=== PATIENT | female | born 1930 | race Caucasian/White ===

== ENCOUNTER 2017-07-29 16:51 | Inpatient (IN) | payer OTHER, MEDICARE ==
--- NOTE | 2017-07-29 17:04 | PDOC ---
Attending Attestation - HPI HPI: 07/29/17 18:20 The patient is a 87 year old female brought via EMS from [facility], with a significant past medical history of asthma/COPD, hypothyroidism, GERD, colostomy (remote and rev reversal, and HTN, who presents to the emergency department complaining of shortness of breath since this morning, generalized weakness for the last few days and complaints of burning on urination as well. The patient did receive a couple of breathing treatments on route to the ED. The patient denies chest pain, headache or dizziness. Denies fever, chills, nausea, vomiting, diarrhea and constipation. Allergies: Banana, watermelon. Past surgical history: colostomy w/ reversal 2010 Social History: No alcohol, tobacco or drug use reported - Physicial Exam PE: 07/29/17 18:21 Constitutional: Awake, alert, oriented. No acute distress. Head: Normocephalic. Atraumatic Eyes: PERRL. EOMI. Conjunctivae are not pale. ENT: Mucous membranes are moist and intact. Posterior pharynx without exudates or erythema. Uvula midline. Neck: Supple. Full ROM. No lymphadenopathy. Cardiovascular: Regular rate. Regular rhythm. S1, S2 regular. Distal pulses are 2+ and symmetric. Pulmonary/Chest: No evidence of respiratory distress. Clear to auscultation bilaterally No wheezing, rales or rhonchi. Abdominal: Soft and non-distended. There is no tenderness. No rebound, guarding or rigidity. No organomegaly. No palpable masses. Good bowel sounds. Back: No CVA tenderness. Musculoskeletal: No edema. No cyanosis. No clubbing. Full range of motion in all extremities. Nocalf tenderness. Radial/pedal pulses are intact and 2+ bilaterally Skin: Skin is warm and dry. No petechiae. No purpura. Neurological: Alert and oriented to person, place, and time. Cranial nerves II -XII are grossly intact. Normal speech. Strength is grossly symmetric. No sensory deficits. Psychiatric: Good eye contact. Normal interaction, affect and behavior. <Cem Swift - Last Filed: 07/29/17 18:20> - Resident Resident Name: José Frias - ED Attending Attestation I have performed the following: I have examined & evaluated the patient, The case was reviewed & discussed with the resident, I agree w/resident's findings & plan, Exceptions are as noted - Medical Decision Making 07/29/17 17:04 I, Dr. Jeanette Matt, DO, attest that this document has been prepared under my direction and personally reviewed by me in its entirety. I further attest, that it accurately reflects all work, treatment, procedures and medical decision -making performed by me. 07/29/17 17:53 a/p: 87yo female with wheezing and SOB -hx of copd and asthma -concern for COPD exacerbation -given 2 duo nebs in the field without relief - still wheezing upon arrival -will continue with nebs, steroids -will check cxr, ekg, labs, cultures -currently on Bactrim for a UTI -will most likely obs vs admission for COPD exacerbation 07/29/17 19:00 PMD is Keely Cain - who admits to hospitalists 07/29/17 19:38 pt with a copd exacerbation will need obs for continued nebs, steroids, further eval of resp distress <Jeanette Matt - Last Filed: 07/29/17 19:38> Heart Score/ECG Review - ECG Intrepretation Comment:: 07/29/17 18:41 sinus at 88, RBBB, nl axis, no acute st/t wave findings <Jeanette Matt - Last Filed: 07/29/17 19:38>
--- NOTE | 2017-07-29 17:04 | PDOC ---
History of Present Illness - General Stated Complaint: ASTHMA Time Seen by Provider: 07/29/17 17:03 - History of Present Illness Initial Comments: 87 year old female from [facility] With PMH of asthma/COPD, hypothyroidism , GERD, colostomy (remote and rev reversal, and HTN who presents to the ED with complaints of SOB since this AM, weakness for the past few days, and dysuria for the past few days. EMS found her in the residential with SOB, diaphoresis, hypoxic to 90, and very fatigued. Two duonebs were given with increase in O2 to 98%. Patient arrived slightly lethargic. Her major complaint was of SOB and severe weakness this AM. 07/29/17 17:42 Past History - Past Medical History Allergies/Adverse Reactions: Allergies Allergy/AdvReac Type Severity Reaction Status Date / Time banana Allergy Verified 04/24/17 13:30 No Known Drug Allergies Allergy Verified 04/22/17 13:25 watermelon Allergy Swelling Uncoded 04/22/17 13:25 Home Medications: Ambulatory Orders Acetaminophen [Tylenol .Extra-Strength -] 1,000 mg PO Q6H PRN 05/24/15 Albuterol Sulfate [Proair Hfa -] 1 - 2 inh PO TID PRN 05/24/15 Aspirin [ASA -] 81 mg PO DAILY 05/24/15 Atorvastatin Calcium 10 mg PO HS 05/24/15 Cholecalciferol (Vitamin D3) [Vitamin D3] 2,000 unit PO DAILY 05/24/15 Docusate Sodium 100 mg PO DAILY 05/24/15 Escitalopram Oxalate [Lexapro -] 10 mg PO DAILY 05/24/15 Ferrous Sulfate 325 mg PO DAILY 05/24/15 Ipratropium/Albuterol Sulfate [Iprat-Albut 0.5-3(2.5) mg/3 ml] 3 ml IH TID PRN 05/24/15 Mirtazapine 7.5 mg PO HS 05/24/15 Omeprazole [Prilosec] 40 mg PO DAILY 05/24/15 Albuterol 2.5/Ipratropium 0.5 [Duoneb -] 1 neb NEB Q4H PRN 05/30/15 Budesonide/Formeterol Fumarate [SYMBICORT 80/4.5mcg -] 1 inh PO BID #1 cannister 05/30/15 Amlodipine Besylate 5 mg PO DAILY 04/22/17 Betamethasone/Propylene Glyc [Betamethasone Dp Aug 0.05% Crm] 15 gm TP BID 04/22 Clotrimazole/Betamethasone Dip [Clotrimazole-Betamethasone Crm] 15 gm TP BID Hypromellose 0.5% Opth Soln [Artificial Tears] 1 - 2 drop TID 04/22/17 Meclizine HCl 25 mg PO BID 04/22/17 Menthol [Bengay Ultra Strength] 1 each TP ASDIR 04/22/17 Nystatin Cream [Mycostatin Cream -] 1 applic TP BID 04/22/17 Sennosides [Senna] 8.6 mg PO HS 04/22/17 Thyroid [[place] Thyroid] 60 mg PO DAILY 04/22/17 Cefuroxime Axetil [Ceftin -] 500 mg PO Q12H #10 tablet 04/28/17 Oseltamivir Phosphate [Tamiflu -] 30 mg PO BID #2 capsule 04/28/17 Sodium Chloride Tablet - 1 gm PO DAILY #30 tablet 04/28/17 predniSONE [Deltasone -] 10 mg PO ASDIR #30 tab 04/28/17 Anemia: Yes Asthma: Yes Cancer: No Cardiac Disorders: No CVA: No COPD: Yes (asthma) CHF: No Dementia: No Diabetes: No GI Disorders: Yes (GERD, colostomy) Disorders: No HTN: Yes Hypercholesterolemia: Yes Liver Disease: No Psychiatric Problems: Yes (Anxiety) Seizures: No Thyroid Disease: Yes (hypothyroid) - Surgical History Abdominal Surgery: Yes (colostomy w/ reversal 2010) Appendectomy: No Cardiac Surgery: No Cholecystectomy: No Lung Surgery: No Neurologic Surgery: No Orthopedic Surgery: No - Immunization History Immunization Up to Date: Yes - Suicide/Smoking/Psychosocial Hx Smoking History: Never smoked Have you smoked in the past 12 months: No Hx Alcohol Use: No Drug/Substance Use Hx: No Substance Use Type: None Hx Substance Use Treatment: No Review of Systems - Review of Systems Constitutional: Yes: Chills, Diaphoresis. No: Fever HEENTM: No: Blurred Vision, Tearing Respiratory: Yes: Shortness of Breath, SOB with Exertion, SOB at Rest, Wheezing. No: Cough Cardiac (ROS): No: Chest Pain, Irregular Heart Rate, Lightheadedness, Palpitations ABD/GI: No: Constipated, Diarrhea, Nausea, Vomiting : Yes: Burning, Dysuria Integumentary: No: Bruising, Erythema Neurological: No: Headache, Numbness *Physical Exam - Physical Exam General Appearance: Yes: Nourished, Appropriately Dressed, Apparent Distress, Mild Distress HEENT: positive: EOMI, UMER, Normal Voice Neck: positive: Trachea midline, Normal Thyroid, Supple. negative: Tender, Rigid Respiratory/Chest: positive: Respiratory Distress, Accessory Muscle Use, Labored Respiration, Rapid RR, Decreased Breath Sounds, Wheezing. negative: Chest Tender, Lungs Clear, Normal Breath Sounds Cardiovascular: positive: Regular Rhythm, Regular Rate Gastrointestinal/Abdominal: positive: Normal Bowel Sounds, Flat, Soft. negative : Tender Musculoskeletal: positive: Normal Inspection. negative: Decreased Range of Motion, Muscle Spasm Extremity: positive: Normal Capillary Refill, Normal Inspection, Normal Range of Motion. negative: Tender Integumentary: positive: Normal Color, Warm, Diaphoresis Neurologic: positive: Alert, Normal Mood/Affect, Motor Strength 5/5. negative: Fully Oriented ED Treatment Course - LABORATORY CBC & Chemistry Diagram: 07/29/17 17:41 07/29/17 17:41 Medical Decision Making - Medical Decision Making 87 year old female presenting in respiratory distress from asthma/copd exacerbation. Given 3 duonebs and 2 albuterol nebs with relief of respiratory distress. O2 decreased because of suspected CO2 narcosis. Given methylpred, azithromycin, and 500 ml IV fluids. No WBC and vitals stable. Admitted under Dr. Sun for COPD/ CHF exacerbation, hypothyroidism, and UTI. 07/29/17 19:23 *DC/Admit/Observation/Transfer Diagnosis at time of Disposition: Asthma-COPD overlap syndrome Hypothyroidism Qualifiers: Hypothyroidism type: unspecified Qualified Code(s): E03.9 - Hypothyroidism, unspecified - Discharge Dispostion Condition at time of disposition: Stable Decision to Admit order: Yes - Referrals - Patient Instructions - Post Discharge Activity
[2017-07-29] MEDS ORDERED: ALBUTEROL SO4 2.5/IPRATROPIUM 0.5 INH SOL 3 ML VIAL.NEB. NEB ONE ×2 (17:24→17:53)
[2017-07-29] MEDS ORDERED: methylPREDNISolone NA SUCC 125 MG/2 ML VIAL IVPB ONE (17:24)
[2017-07-29] MEDS ORDERED: ALBUTEROL SO4 2.5/IPRATROPIUM 0.5 INH SOL 3 ML VIAL.NEB. NEB SCH (17:45)
[2017-07-29] MEDS ORDERED: SODIUM CHLORIDE 0.9% 500 ML INFUS.BAG IV ONE (17:45)
[2017-07-29] MEDS ORDERED: ALBUTEROL SO4 0.083% IH SOL 2.5 MG/3 ML VIAL.NEB. NEB ONE (17:54)
[2017-07-29 17:58] LABS: HEMATOCRIT 35.7 % (32.4-45.2); LYMPH % 31.8 % (8-40); MCH 32.3 pg (25.7-33.7); MCHC 33.8 g/dl (32.0-36.0); MEAN CELL VOLUME 95.7 fl (80-96); MEAN PLT VOLUME 7.2 fl (7.5-11.1); MONO % 6.1 % (3.8-10.2); NEUT % 62.1 % (42.8-82.8); PLATELET COUNT 190 K/MM3 (134-434); RBC 3.73 M/mm3 (3.60-5.2); RDW 13.4 % (11.6-15.6); WHITE BLOOD COUNT 3.7 K/mm3 (4.0-10.0)
[2017-07-29 18:03] LABS: VENOUS PC02 41.3 mmHg (38-52); VENOUS PH 7.38 (7.32-7.42); VENOUS PO2 56.9 mmHg (28-48)
[2017-07-29] MEDS: ALBUTEROL SO4 0.083% IH SOL 2.5 MG/3 ML VIAL.NEB. NEB SCH ×4 (18:06→19:05)
[2017-07-29] MEDS ORDERED: methylPREDNISolone NA SUCC 125 MG/2 ML VIAL ONE (18:08)
[2017-07-29 18:14] LABS: ARTERIAL BLD GAS O2 SATURATION 91.6 % (90-98.9); ARTERIAL BLOOD GAS BASE EXCESS 0.3 meq/l (-2-2); ARTERIAL BLOOD GAS PCO2 39.7 mmHg (35-45); ARTERIAL BLOOD GAS PO2 62.6 mmHg (68-100); ARTERIAL BLOOD GAS pH 7.41 (7.35-7.45); CARBOXYHEMOGLOBIN 1.3 gm% (0.5-2.0)
[2017-07-29 18:17] LABS: ALLENS TEST POSITIVE
[2017-07-29 18:23] LABS: ALBUMIN 4.2 g/dl (3.4-5.0); ANION GAP 8 (8-16); BILIRUBIN,TOTAL 0.3 mg/dL (0.2-1.0); BLOOD UREA NITROGEN 19 mg/dL (7-18); CALCIUM 8.6 mg/dL (8.5-10.1); CHLORIDE 96 mmol/L (98-107); CO2 26 mmol/L (21-32); CREATININE 1.2 mg/dL (0.55-1.02); GLUCOSE,RANDOM 127 mg/dL (74-106); POTASSIUM 4.7 mmol/L (3.5-5.1); SGOT/AST 22 U/L (15-37); SGPT/ALT 19 U/L (12-78); SODIUM 130 mmol/L (136-145)
[2017-07-29 18:25] LABS: ALK PHOS 94 U/L (45-117); N-TERMINAL BNP 1104.26 pg/ml (5-450)
[2017-07-29] MEDS ORDERED: AZITHROMYCIN IVPB 500 MG in DEXTROSE 5%-WATER - 250 ML IVPB ONE (19:01)
[2017-07-29] MEDS ORDERED: DOCUSATE SODIUM 100 MG CAPSULE (FP) PO PRN (19:32)
[2017-07-29] MEDS ORDERED: ALBUTEROL SO4 0.083% IH SOL 2.5 MG/3 ML VIAL.NEB. NEB PRN (19:48)
[2017-07-29] MEDS ORDERED: IPRATROPIUM BR 0.02% 0.5 MG/2.5 ML VIAL.NEB. NEB PRN (19:50)
--- NOTE | 2017-07-29 19:51 | HP ---
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 Patient is a poor historian and is unable to provide an accurate history. Per record, patient has been short of breath for a few days. Her prison found her hypoxic, weak, and lethargic. EMS administered duonebs and patient immediately improved and saturation sebastian to 98%. Per record , patient is on day 6 for treatment of UTI with bactrim. Currently, patient denies chest pain, shortness of breath, nausea, vomiting, diarrhea, fevers, chills, wheezing. ER course was notable for: (1) Na 130 (2) TSH 5.95 (3) PAST MEDICAL HISTORY: COPD, asthma, hypothyroidism, GERD, colostomy, HTN, Hyponatremia PAST SURGICAL HISTORY: colostomy Social History: Smoking: denies Alcohol: denies Drugs: denies Allergies banana Allergy (Verified 04/24/17 13:30) No Known Drug Allergies Allergy (Verified 04/22/17 13:25) watermelon Allergy (Uncoded 04/22/17 13:25) Swelling HOME MEDICATIONS: Home Medications Medication Instructions Recorded Acetaminophen [Tylenol 1,000 mg PO Q6H PRN 05/24/15 .Extra-Strength -] Albuterol Sulfate [Proair Hfa -] 1 - 2 inh PO TID PRN 05/24/15 Aspirin [ASA -] 81 mg PO DAILY 05/24/15 Atorvastatin Calcium 10 mg PO HS 05/24/15 Cholecalciferol (Vitamin D3) 2,000 unit PO DAILY 05/24/15 [Vitamin D3] Docusate Sodium 100 mg PO DAILY 05/24/15 Escitalopram Oxalate [Lexapro -] 10 mg PO DAILY 05/24/15 Ferrous Sulfate 325 mg PO DAILY 05/24/15 Ipratropium/Albuterol Sulfate 3 ml IH TID PRN 05/24/15 [Iprat-Albut 0.5-3(2.5) mg/3 ml] Mirtazapine 7.5 mg PO HS 05/24/15 Omeprazole [Prilosec] 40 mg PO DAILY 05/24/15 Albuterol 2.5/Ipratropium 0.5 1 neb NEB Q4H PRN 05/30/15 [Duoneb -] Budesonide/Formeterol Fumarate 1 inh PO BID #1 cannister 05/30/15 [SYMBICORT 80/4.5mcg -] Amlodipine Besylate 5 mg PO DAILY 04/22/17 Betamethasone/Propylene Glyc 15 gm TP BID 04/22/17 [Betamethasone Dp Aug 0.05% Crm] Clotrimazole/Betamethasone Dip 15 gm TP BID 04/22/17 [Clotrimazole-Betamethasone Crm] Hypromellose 0.5% Opth Soln 1 - 2 drop TID 04/22/17 [Artificial Tears] Meclizine HCl 25 mg PO BID 04/22/17 Menthol [Bengay Ultra Strength] 1 each TP ASDIR 04/22/17 Nystatin Cream [Mycostatin Cream -] 1 applic TP BID 04/22/17 Sennosides [Senna] 8.6 mg PO HS 04/22/17 Thyroid [[place] Thyroid] 60 mg PO DAILY 04/22/17 Cefuroxime Axetil [Ceftin -] 500 mg PO Q12H #10 tablet 04/28/17 Oseltamivir Phosphate [Tamiflu -] 30 mg PO BID #2 capsule 04/28/17 Sodium Chloride Tablet - 1 gm PO DAILY #30 tablet 04/28/17 predniSONE [Deltasone -] 10 mg PO ASDIR #30 tab 04/28/17 REVIEW OF SYSTEMS CONSTITUTIONAL: Absent: fever, chills, diaphoresis, generalized weakness, malaise, loss of appetite, weight change HEENT: Absent: rhinorrhea, nasal congestion, throat pain, throat swelling, difficulty swallowing, mouth swelling, ear pain, eye pain, visual changes CARDIOVASCULAR: Absent: chest pain, syncope, palpitations, irregular heart rate, lightheadedness , peripheral edema RESPIRATORY: Absent: cough, shortness of breath, dyspnea with exertion, orthopnea, wheezing, stridor, hemoptysis GASTROINTESTINAL: Absent: abdominal pain, abdominal distension, nausea, vomiting, diarrhea, constipation, melena, hematochezia GENITOURINARY: Absent: dysuria, frequency, urgency, hesitancy, hematuria, flank pain, genital pain MUSCULOSKELETAL: Absent: myalgia, arthralgia, joint swelling, back pain, neck pain SKIN: Absent: rash, itching, pallor HEMATOLOGIC/IMMUNOLOGIC: Absent: easy bleeding, easy bruising, lymphadenopathy, frequent infections ENDOCRINE: Absent: unexplained weight gain, unexplained weight loss, heat intolerance, cold intolerance NEUROLOGIC: Absent: headache, focal weakness or paresthesias, dizziness, unsteady gait, seizure, mental status changes, bladder or bowel incontinence PSYCHIATRIC: Absent: anxiety, depression, suicidal or homicidal ideation, hallucinations. PHYSICAL EXAMINATION Vital Signs - 24 hr 07/29/17 07/29/17 07/29/17 16:51 17:04 17:08 Temperature 98.2 F Pulse Rate 90 82 82 Respiratory 16 Rate Blood Pressure 160/73 O2 Sat by Pulse 99 91 L 91 L Oximetry (%) 07/29/17 18:03 Temperature Pulse Rate 82 Respiratory Rate Blood Pressure O2 Sat by Pulse 99 Oximetry (%) GENERAL: A&O x 1, no acute distress EYES: PERRLA, EOMI ENT: Moist mucus membranes NECK: No JVD LUNGS: CTA, mild bibasilar crackles noted no wheezes HEART: RRR, 3/6 systolic murmur 2nd R intercostal ABDOMEN: distended but soft, nontender, BS present MUSCULOSKELETAL: No CVA Tenderness EXTREMITIES: 2+ pulses, 1+ pitting edema NEUROLOGICAL: Cranial nerves II-XII intact. Laboratory Results - last 24 hr 07/29/17 07/29/17 07/29/17 17:34 17:34 17:41 WBC 3.7 L D RBC 3.73 Hgb 12.0 Hct 35.7 MCV 95.7 MCH 32.3 MCHC 33.8 RDW 13.4 Plt Count 190 D MPV 7.2 L Neutrophils % 62.1 D Lymphocytes % 31.8 D Monocytes % 6.1 D Eosinophils % 0.0 Basophils % 0.0 Nucleated RBC % 0 Anticoagulation Therapy Puncture Site ABG pH ABG pCO2 at Pt Temp ABG pO2 at Pt Temp ABG HCO3 ABG O2 Sat (Measured) ABG O2 Content ABG Base Excess Santosh Test VBG pH 7.38 POC VBG pCO2 41.3 D POC VBG pO2 56.9 H D Mixed VBG HCO3 24.3 Carboxyhemoglobin Methemoglobin O2 Delivery Device Oxygen Flow Rate Vent Mode Vent Rate Mechanical Rate Pressure Support Vent Sodium Potassium Chloride Carbon Dioxide Anion Gap BUN Creatinine Creat Clearance w eGFR Random Glucose Lactic Acid Calcium Total Bilirubin AST ALT Alkaline Phosphatase Creatine Kinase Troponin I B-Natriuretic Peptide Total Protein Albumin TSH 5.95 H Free T4 0.63 L 07/29/17 07/29/17 07/29/17 17:41 17:42 17:58 WBC RBC Hgb Hct MCV MCH MCHC RDW Plt Count MPV Neutrophils % Lymphocytes % Monocytes % Eosinophils % Basophils % Nucleated RBC % Anticoagulation Therapy No Result Required. Puncture Site Right radial ABG pH 7.41 ABG pCO2 at Pt Temp 39.7 ABG pO2 at Pt Temp 62.6 L D ABG HCO3 24.4 ABG O2 Sat (Measured) 91.6 ABG O2 Content 14.2 L ABG Base Excess 0.3 Santosh Test Positive VBG pH POC VBG pCO2 POC VBG pO2 Mixed VBG HCO3 Carboxyhemoglobin 1.3 Methemoglobin 1.6 H O2 Delivery Device Room air Oxygen Flow Rate 21% Vent Mode No Result Required. Vent Rate No Result Required. Mechanical Rate No Result Required. Pressure Support Vent No Result Required. Sodium 130 L Potassium 4.7 Chloride 96 L Carbon Dioxide 26 Anion Gap 8 BUN 19 H Creatinine 1.2 H Creat Clearance w eGFR 42.30 Random Glucose 127 H Lactic Acid 1.2 Calcium 8.6 Total Bilirubin 0.3 AST 22 ALT 19 Alkaline Phosphatase 94 Creatine Kinase 128 Troponin I < 0.02 B-Natriuretic Peptide 1104.26 H Total Protein 8.0 Albumin 4.2 TSH Free T4 ASSESSMENT/PLAN: 87 year old female with a hx of COPD and asthma, hypothyroid, GERD, hx of colostomy and hypertension presents with acute shortness of breath likely secondary to COPD exacerbation #COPD Exacerbation: mild exacerbation, patient satting 98% on 1.5 liters -albuterol/ipratropium inhalers Q6 Jak -solumedrol 40 BID -zithromax given by ED -monitor O2 sat -2L O2 nasal cannula -obs admission -get echo -2nd troponin at midnight #UTI: patient was diagnosed with UTI on 07/23 and given a 7 day course of bactrim , she is on day 6/7 per prison record -give 1 more day of bactrim (3 doses) #CAD: chronic, no symptoms to suggest ACS -EKG new RBBB otherwise NSR w/ sinus arrhythmia -continue ASA -continue atorvastatin -echocardiogram -repeat troponin #Hyponatremia: patient is chronically hyponatremic, 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 -continue home dose of sodium supplementation #Hypothyroid: patient is not controlled on her current dose of armour thyroid 60mg QD -keep thyroid medication at 60 for now #Hypertension: patient is mildly hypertensive -continue amlodipine 5mg QD #FEN: -no standing fluids -chronically hyponatremic, continue sodium pills and recheck BMP -low sodium diet #Prophylaxis -heparin prophylaxis 5000 TID #Disposition -med-surg obs Visit type - Emergency Visit Emergency Visit: Yes Care time: The patient presented to the Emergency Department on the above date and was hospitalized for further evaluation of their emergent condition. - New Patient This patient is new to me today: Yes Date on this admission: 07/29/17 - Critical Care Critical Care patient: No Hospitalist Screening - Colonoscopy Questionnaire Colonoscopy Questionnaire: Colonoscopy Questionnaire - Patient: 50 - 75 years old and never had a screening colonoscopy: Unknown History of colon or rectal polyps, or CA: Unknown History of IBD, Crohn's disease or UC: Unknown History of abdominal radiation therapy as a child: Unknown - Relative: 1 with colon or rectal CA, or polyps at age 60 or younger: Unknown Colon or rectal CA diagnosed at age 45 or younger: Unknown Multiple relatives with colon or rectal CA: Unknown - Outcome: Screening Result: Negative Screen
--- NOTE | 2017-07-29 21:28 | PN ---
Teaching Attending Note Name of Resident: Primo Sanchez ATTENDING PHYSICIAN STATEMENT I saw and evaluated the patient. Chart, data, imaging reviewed. I reviewed the resident's note and discussed the case with the resident. I agree with the resident's findings and plan as documented. SUBJECTIVE: 87 year old senior care resident woman with a hx of COPD, asthma, hypothyroidism, GERD, colostomy, HTN, Hyponatremia c/o shortness of breath for the last 2 days. Denied any fevers or productive cough. No recent travels or sick contacts. Breathing improved after duonebs administered by EMS. OBJECTIVE: Last Vital Signs Temp Pulse Resp BP Pulse Ox 98.2 F 82 16 160/73 99 07/29/17 16:51 07/29/17 18:03 07/29/17 16:51 07/29/17 16:51 07/29/17 18:03 general- frail elderly woman, speaking in full sentences, no accessory muscles of resp heent - moist oral mucosa neck-supple cv-s1+s2+ chest- mild expiratory wheezing b/l on lung auscultation abdomen- soft, nt, bs+ ext -no pedal edema Abnormal Lab Results 07/29/17 07/29/17 07/29/17 17:34 17:34 17:41 WBC 3.7 L D MPV 7.2 L ABG pO2 at Pt Temp ABG O2 Content POC VBG pO2 56.9 H D Methemoglobin Sodium Chloride BUN Creatinine Random Glucose B-Natriuretic Peptide TSH 5.95 H Free T4 0.63 L 07/29/17 07/29/17 17:41 17:58 WBC MPV ABG pO2 at Pt Temp 62.6 L D ABG O2 Content 14.2 L POC VBG pO2 Methemoglobin 1.6 H Sodium 130 L Chloride 96 L BUN 19 H Creatinine 1.2 H Random Glucose 127 H B-Natriuretic Peptide 1104.26 H TSH Free T4 ASSESSMENT AND PLAN: #87yo woman with shortness of breath likely secondary to asthma/COPD exacerbation as it is improved after nebulizer treatment and IV steroids. Less likely to be cardiac related. Normal ekg, no chest pain. -observation -duonebs q6hrs -methylprednisone 40mg IV q12hrs -supplemental oxygen -trend troponin -repeat ekg -tranthoracic echo #HYpothryoidism -restart home medication #Hyponatremia- chronic, may be 2/2 SIADH -free water restriction -salt tablets dvt ppx -heparin sc
[2017-07-29] MEDS ORDERED: SULFAMETHOXAZOLE/TRIMETHOPRIM 800MG/160MG D.S. TABLET PO SCH (22:00)
[2017-07-29] MEDS ORDERED: AZITHROMYCIN IVPB 250 ML IVPB ONE (22:22)
[2017-07-30] MEDS: NYSTATIN 100,000 UNIT/GM TOPICAL CREAM 15 GM TUBE TP SCH ×3 (00:02→22:03)
[2017-07-30] MEDS: CLOTRIMAZOLE/BETAMET DIPROP 15 GM TUBE TP SCH ×3 (00:30→22:03)
[2017-07-30] MEDS: ATORVASTATIN CA 10 MG TABLET (FP) PO SCH ×2 (00:30→21:55)
[2017-07-30] MEDS: SENNOSIDES 8.6MG TABLET (FP) PO SCH ×2 (00:30→21:55)
[2017-07-30] MEDS: MECLIZINE HCL 25 MG TABLET (FP) PO SCH ×3 (00:30→21:55)
[2017-07-30] MEDS: MIRTAZAPINE 15 MG TABLET (FP) PO SCH ×2 (00:30→21:55)
[2017-07-30] MEDS: methylPREDNISolone NA SUCC 40 MG/1 ML VIAL IVPUSH SCH ×4 (01:00→21:55)
[2017-07-30 01:30] LABS: URINE APPEARANCE CLEAR; URINE BILIRUBIN NEGATIVE (<2.0 mg/dL); URINE COLOR LTYELLOW; URINE GLUCOSE (UA) NEGATIVE (NEGATIVE); URINE KETONE TRACE (NEGATIVE); URINE LEUK ESTERASE NEGATIVE (NEGATIVE); URINE NITRITE NEGATIVE (NEGATIVE); URINE PROTEIN NEGATIVE (NEGATIVE); URINE UROBILINOGEN NEGATIVE mg/dL (0.2-1.0)
[2017-07-30] MEDS: HEPARIN NA (PORCINE) 5,000 UNITS/ML 1ML VIAL SQ SCH ×3 (02:59→18:50)
[2017-07-30 03:51] VITALS: BMI 28.8
[2017-07-30] MEDS: THYROID 60 MG TABLET PO SCH (06:58)
[2017-07-30 07:32] LABS: HEMOGLOBIN 10.4 GM/dL (10.7-15.3); MCH 31.9 pg (25.7-33.7); MCHC 33.3 g/dl (32.0-36.0); MEAN CELL VOLUME 95.8 fl (80-96); MEAN PLT VOLUME 7.4 fl (7.5-11.1); PLATELET COUNT 171 K/MM3 (134-434); RBC 3.24 M/mm3 (3.60-5.2); RDW 13.3 % (11.6-15.6); WHITE BLOOD COUNT 2.1 K/mm3 (4.0-10.0)
[2017-07-30] MEDS ORDERED: ALBUTEROL SO4 0.083% IH SOL 2.5 MG/3 ML VIAL.NEB. NEB PRN (07:43)
[2017-07-30 08:18] LABS: CHLORIDE 97 mmol/L (98-107); POTASSIUM 4.7 mmol/L (3.5-5.1); SODIUM 132 mmol/L (136-145)
[2017-07-30] MEDS: ALBUTEROL SO4 2.5/IPRATROPIUM 0.5 INH SOL 3 ML VIAL.NEB. NEB SCH ×2 (08:28→11:04)
[2017-07-30 08:59] LABS: HEMATOCRIT 30.5 % (32.4-45.2); HEMOGLOBIN 10.3 GM/dL (10.7-15.3); MCH 32.3 pg (25.7-33.7); MCHC 33.7 g/dl (32.0-36.0); MEAN CELL VOLUME 95.9 fl (80-96); MEAN PLT VOLUME 7.5 fl (7.5-11.1); PLATELET COUNT 154 K/MM3 (134-434); RBC 3.18 M/mm3 (3.60-5.2); RDW 13.4 % (11.6-15.6); WHITE BLOOD COUNT 2.2 K/mm3 (4.0-10.0)
[2017-07-30] MEDS ORDERED: PT OWN MED DRAWER 7, Y5N ONE (09:14)
[2017-07-30] MEDS: PANTOPRAZOLE 40 MG TABLET (FP) PO SCH (09:14)
[2017-07-30] MEDS: ASPIRIN 81 MG CHEWABLE TABLETS PO SCH (09:14)
[2017-07-30] MEDS: FERROUS SO4 325 MG TABLET (FP) PO SCH (09:14)
[2017-07-30] MEDS: amLODIPine BESYLATE 5 MG TABLET (FP) PO SCH (09:14)
[2017-07-30] MEDS: SODIUM CHLORIDE 1 GM TABLET PO SCH (09:15)
[2017-07-30] MEDS: CHOLECALCIFEROL (VITAMIN D3) 1,000 UNIT TABLET (FP) PO SCH (09:15)
[2017-07-30] MEDS: ESCITALOPRAM OXALATE 10 MG TABLET (FP) PO SCH (09:15)
[2017-07-30 09:20] LABS: ANION GAP 13 (8-16); BLOOD UREA NITROGEN 23 mg/dL (7-18); CALCIUM 8.2 mg/dL (8.5-10.1); CO2 22 mmol/L (21-32); GLUCOSE,RANDOM 122 mg/dL (74-106); MAGNESIUM 2.3 mg/dL (1.8-2.4); PHOSPHOROUS 4.7 mg/dL (2.5-4.9)
[2017-07-30 09:49] LABS: BASO % 0.1 % (0-2.0); LYMPH % 45.2 % (8-40); MONO % 5.9 % (3.8-10.2); NEUT % 48.8 % (42.8-82.8)
[2017-07-30] MEDS ORDERED: METHYL SALICYLATE/MENTHOL OINT 30 GM TUBE TP SCH (10:00)
[2017-07-30] MEDS ORDERED: THYROID 60 MG TABLET PO SCH ×3 (10:00)
--- NOTE | 2017-07-30 10:47 | EKG ---
Test Reason : Blood Pressure : / mmHG Vent. Rate : 088 BPM Atrial Rate : 088 BPM P-R Int : 150 ms QRS Dur : 118 ms QT Int : 390 ms P-R-T Axes : 057 011 027 degrees QTc Int : 471 ms NORMAL SINUS RHYTHM WITH SINUS ARRHYTHMIA RIGHT BUNDLE BRANCH BLOCK ABNORMAL ECG Confirmed by ARLENE BOCANEGRA MD ([id number]) on 07/30/2017 10:47:17 AM Referred By: Confirmed By:ARLENE BOCANEGRA MD
--- NOTE | 2017-07-30 13:52 | PN ---
Physical Exam: SUBJECTIVE: Patient seen and examined. Receiving nebulizer treatment. OBJECTIVE: Vital Signs Period Temp Pulse Resp BP Sys/Duron Pulse Ox Last 24 Hr 98.2 F-98.8 F 73-90 16-20 100-160/48-73 91-99 Vital Signs Temp 98.8 F 07/30/17 10:00 Pulse 78 07/30/17 10:14 Resp 20 07/30/17 10:00 BP 132/70 07/30/17 10:00 Pulse Ox 92 L 07/30/17 10:14 GENERAL: The patient is awake, alert, and fully oriented, on nebulizer treatment LUNGS: Scattered wheezes bilaterally, with reduced air entry more on L. HEART: Regular rate and rhythm, S1, S2 without murmur, rub or gallop. ABDOMEN: Soft, nontender, nondistended, normoactive bowel sounds EXTREMITIES: 2+ pulses, warm, well-perfused, no edema. NEUROLOGICAL: AAOx3. Normal speech, ambulates with walker Laboratory Results - last 24 hr 07/29/17 07/29/17 07/29/17 17:34 17:34 17:41 WBC 3.7 L D RBC 3.73 Hgb 12.0 Hct 35.7 MCV 95.7 MCH 32.3 MCHC 33.8 RDW 13.4 Plt Count 190 D MPV 7.2 L Total Counted Neutrophils % 62.1 D Neutrophils % (Manual) Band Neutrophils % Lymphocytes % 31.8 D Lymphocytes % (Manual) Monocytes % 6.1 D Monocytes % (Manual) Eosinophils % 0.0 Eosinophils % (Manual) Basophils % 0.0 Basophils % (Manual) Myelocytes % (Man) Promyelocytes % (Man) Blast Cells % (Manual) Nucleated RBC % 0 Metamyelocytes Differential Comment Hypersegmented Neuts Plasma Cells Smudge Cells Other Cell Type Hypochromia Toxic Granulation Dohle Bodies Polychromasia Poikilocytosis Basophilic Stippling Anisocytosis Microcytosis Macrocytosis Spherocytes Siderocytes Sickle Cells Target Cells Tear Drop Cells Ovalocytes Stomatocytes Helmet Cells Vance-Mccaulley Bodies [place] Rings Jass Cells Acanthocytes (Spur) Rouleaux Fragmented RBCs Schistocytes Anticoagulation Therapy Puncture Site ABG pH ABG pCO2 at Pt Temp ABG pO2 at Pt Temp ABG HCO3 ABG O2 Sat (Measured) ABG O2 Content ABG Base Excess Santosh Test VBG pH 7.38 POC VBG pCO2 41.3 D POC VBG pO2 56.9 H D Mixed VBG HCO3 24.3 Carboxyhemoglobin Methemoglobin O2 Delivery Device Oxygen Flow Rate Vent Mode Vent Rate Mechanical Rate Pressure Support Vent Sodium Potassium Chloride Carbon Dioxide Anion Gap BUN Creatinine Creat Clearance w eGFR Random Glucose Lactic Acid Calcium Phosphorus Magnesium Total Bilirubin AST ALT Alkaline Phosphatase Creatine Kinase Troponin I B-Natriuretic Peptide Total Protein Albumin TSH 5.95 H Free T4 0.63 L Urine Color Urine Appearance Urine pH Ur Specific [place] Urine Protein Urine Glucose (UA) Urine Ketones Urine Blood Urine Nitrite Urine Bilirubin Urine Urobilinogen Ur Leukocyte Esterase 07/29/17 07/29/17 07/29/17 17:41 17:42 17:58 WBC RBC Hgb Hct MCV MCH MCHC RDW Plt Count MPV Total Counted Neutrophils % Neutrophils % (Manual) Band Neutrophils % Lymphocytes % Lymphocytes % (Manual) Monocytes % Monocytes % (Manual) Eosinophils % Eosinophils % (Manual) Basophils % Basophils % (Manual) Myelocytes % (Man) Promyelocytes % (Man) Blast Cells % (Manual) Nucleated RBC % Metamyelocytes Differential Comment Hypersegmented Neuts Plasma Cells Smudge Cells Other Cell Type Hypochromia Toxic Granulation Dohle Bodies Polychromasia Poikilocytosis Basophilic Stippling Anisocytosis Microcytosis Macrocytosis Spherocytes Siderocytes Sickle Cells Target Cells Tear Drop Cells Ovalocytes Stomatocytes Helmet Cells Vance-Mccaulley Bodies [place] Rings [place] Cells Acanthocytes (Spur) Rouleaux Fragmented RBCs Schistocytes Anticoagulation Therapy No Result Required. Puncture Site Right radial ABG pH 7.41 ABG pCO2 at Pt Temp 39.7 ABG pO2 at Pt Temp 62.6 L D ABG HCO3 24.4 ABG O2 Sat (Measured) 91.6 ABG O2 Content 14.2 L ABG Base Excess 0.3 Santosh Test Positive VBG pH POC VBG pCO2 POC VBG pO2 Mixed VBG HCO3 Carboxyhemoglobin 1.3 Methemoglobin 1.6 H O2 Delivery Device Room air Oxygen Flow Rate 21% Vent Mode No Result Required. Vent Rate No Result Required. Mechanical Rate No Result Required. Pressure Support Vent No Result Required. Sodium 130 L Potassium 4.7 Chloride 96 L Carbon Dioxide 26 Anion Gap 8 BUN 19 H Creatinine 1.2 H Creat Clearance w eGFR 42.30 Random Glucose 127 H Lactic Acid 1.2 Calcium 8.6 Phosphorus Magnesium Total Bilirubin 0.3 AST 22 ALT 19 Alkaline Phosphatase 94 Creatine Kinase 128 Troponin I < 0.02 B-Natriuretic Peptide 1104.26 H Total Protein 8.0 Albumin 4.2 TSH Free T4 Urine Color Urine Appearance Urine pH Ur Specific [place] Urine Protein Urine Glucose (UA) Urine Ketones Urine Blood Urine Nitrite Urine Bilirubin Urine Urobilinogen Ur Leukocyte Esterase 07/30/17 07/30/17 07/30/17 01:01 01:02 06:30 WBC 2.1 L D RBC 3.24 L Hgb 10.4 L D Hct 31.0 L MCV 95.8 MCH 31.9 MCHC 33.3 RDW 13.3 Plt Count 171 MPV 7.4 L Total Counted Neutrophils % Neutrophils % (Manual) Band Neutrophils % Lymphocytes % Lymphocytes % (Manual) Monocytes % Monocytes % (Manual) Eosinophils % Eosinophils % (Manual) Basophils % Basophils % (Manual) Myelocytes % (Man) Promyelocytes % (Man) Blast Cells % (Manual) Nucleated RBC % Metamyelocytes Differential Comment Hypersegmented Neuts Plasma Cells Smudge Cells Other Cell Type Hypochromia Toxic Granulation Dohle Bodies Polychromasia Poikilocytosis Basophilic Stippling Anisocytosis Microcytosis Macrocytosis Spherocytes Siderocytes Sickle Cells Target Cells Tear Drop Cells Ovalocytes Stomatocytes Helmet Cells Vance-Mccaulley Bodies [place] Rings [place] Cells Acanthocytes (Spur) Rouleaux Fragmented RBCs Schistocytes Anticoagulation Therapy Puncture Site ABG pH ABG pCO2 at Pt Temp ABG pO2 at Pt Temp ABG HCO3 ABG O2 Sat (Measured) ABG O2 Content ABG Base Excess Santosh Test VBG pH POC VBG pCO2 POC VBG pO2 Mixed VBG HCO3 Carboxyhemoglobin Methemoglobin O2 Delivery Device Oxygen Flow Rate Vent Mode Vent Rate Mechanical Rate Pressure Support Vent Sodium Potassium Chloride Carbon Dioxide Anion Gap BUN Creatinine Creat Clearance w eGFR Random Glucose Lactic Acid Calcium Phosphorus Magnesium Total Bilirubin AST ALT Alkaline Phosphatase Creatine Kinase 89 Troponin I < 0.02 B-Natriuretic Peptide Total Protein Albumin TSH Free T4 Urine Color Ltyellow Urine Appearance Clear Urine pH 5.0 Ur Specific [place]ard 1.014 Urine Protein Negative Urine Glucose (UA) Negative Urine Ketones Trace H Urine Blood Negative Urine Nitrite Negative Urine Bilirubin Negative Urine Urobilinogen Negative Ur Leukocyte Esterase Negative 07/30/17 07/30/17 06:30 09:00 WBC 2.2 L RBC 3.18 L Hgb 10.3 L Hct 30.5 L MCV 95.9 MCH 32.3 MCHC 33.7 RDW 13.4 Plt Count 154 MPV 7.5 Total Counted Cancelled Neutrophils % 48.8 D Neutrophils % (Manual) Cancelled Band Neutrophils % Cancelled Lymphocytes % 45.2 H D Lymphocytes % (Manual) Cancelled Monocytes % 5.9 Monocytes % (Manual) Cancelled Eosinophils % 0.0 Eosinophils % (Manual) Cancelled Basophils % 0.1 D Basophils % (Manual) Cancelled Myelocytes % (Man) Cancelled Promyelocytes % (Man) Cancelled Blast Cells % (Manual) Cancelled Nucleated RBC % 0 Metamyelocytes Cancelled Differential Comment Cancelled Hypersegmented Neuts Cancelled Plasma Cells Cancelled Smudge Cells Cancelled Other Cell Type Cancelled Hypochromia Cancelled Toxic Granulation Cancelled Dohle Bodies Cancelled Polychromasia Cancelled Poikilocytosis Cancelled Basophilic Stippling Cancelled Anisocytosis Cancelled Microcytosis Cancelled Macrocytosis Cancelled Spherocytes Cancelled Siderocytes Cancelled Sickle Cells Cancelled Target Cells Cancelled Tear Drop Cells Cancelled Ovalocytes Cancelled Stomatocytes Cancelled Helmet Cells Cancelled Vance-Mccaulley Bodies Cancelled [place] Rings Cancelled [place] Cells Cancelled Acanthocytes (Spur) Cancelled Rouleaux Cancelled Fragmented RBCs Cancelled Schistocytes Cancelled Anticoagulation Therapy Puncture Site ABG pH ABG pCO2 at Pt Temp ABG pO2 at Pt Temp ABG HCO3 ABG O2 Sat (Measured) ABG O2 Content ABG Base Excess Santosh Test VBG pH POC VBG pCO2 POC VBG pO2 Mixed VBG HCO3 Carboxyhemoglobin Methemoglobin O2 Delivery Device Oxygen Flow Rate Vent Mode Vent Rate Mechanical Rate Pressure Support Vent Sodium 132 L Potassium 4.7 Chloride 97 L Carbon Dioxide 22 Anion Gap 13 BUN 23 H Creatinine 1.0 Creat Clearance w eGFR Random Glucose 122 H Lactic Acid Calcium 8.2 L Phosphorus 4.7 Magnesium 2.3 Total Bilirubin AST ALT Alkaline Phosphatase Creatine Kinase Troponin I B-Natriuretic Peptide Total Protein Albumin TSH Free T4 Urine Color Urine Appearance Urine pH Ur Specific [place] Urine Protein Urine Glucose (UA) Urine Ketones Urine Blood Urine Nitrite Urine Bilirubin Urine Urobilinogen Ur Leukocyte Esterase Active Medications Generic Name Dose Route Start Last Admin Trade Name Freq PRN Reason Stop Dose Admin Albuterol Sulfate 1 amp 07/30/17 07:43 Ventolin 0.083% Nebulizer Soln - NEB Q4H PRN ASTHMA Albuterol/Ipratropium 1 amp 07/30/17 08:30 07/30/17 11:04 Duoneb - NEB 1 amp RQID JAK Administration Amlodipine Besylate 5 mg 07/30/17 10:00 07/30/17 09:14 Norvasc - PO 5 mg DAILY JAK Administration Aspirin 81 mg 07/30/17 10:00 07/30/17 09:14 Asa - PO 81 mg DAILY JAK Administration Atorvastatin Calcium 10 mg 07/29/17 22:00 07/30/17 00:30 Lipitor - PO Not Given HS JAK Cholecalciferol 2,000 unit 07/30/17 10:00 07/30/17 09:15 Vitamin D3 - PO 2,000 unit DAILY JAK Administration Clotrimazole 1 applic 07/29/17 22:00 07/30/17 00:30 Lotrisone Cream (Small Tube) TP Not Given BID JAK Docusate Sodium 100 mg 07/29/17 19:32 Colace - PO Q8H PRN CONSTIPATION Escitalopram Oxalate 10 mg 07/30/17 10:00 07/30/17 09:15 Lexapro - PO 10 mg DAILY JAK Administration Ferrous Sulfate 325 mg 07/30/17 10:00 07/30/17 09:14 Feosol - PO 325 mg DAILY JAK Administration Heparin Sodium (Porcine) 5,000 unit 07/29/17 19:45 07/30/17 09:15 Heparin - SQ 5,000 unit Q8H-IV JAK Administration Meclizine HCl 25 mg 07/29/17 22:00 07/30/17 09:15 Antivert - PO 25 mg BID JAK Administration Methylprednisolone Sodium Succinate 40 mg 07/30/17 18:00 Solu-Medrol - IVPUSH Q8H-IV JAK Mirtazapine 7.5 mg 07/29/17 22:00 07/30/17 00:30 Remeron - PO Not Given HS JAK Nystatin 1 applic 07/29/17 22:00 07/30/17 00:02 Mycostatin Cream - TP Not Given BID JAK Pantoprazole Sodium 40 mg 07/30/17 10:00 07/30/17 09:14 Protonix - PO 40 mg DAILY [facility] Administration Senna 1 tab 07/29/17 22:00 07/30/17 00:30 Senna - PO Not Given [facility] Sodium Chloride 1 gm 07/30/17 10:00 07/30/17 09:15 Sodium Chloride Tablet - PO 1 gm DAILY [facility] Administration Thyroid 60 mg 07/30/17 07:00 07/30/17 06:58 [place] Thyroid - PO 60 mg 0700 JAK Administration Current Medications Albuterol Sulfate (Ventolin 0.083% Nebulizer Soln -) 1 amp NEB Q4H PRN PRN Reason: ASTHMA Albuterol/Ipratropium (Duoneb -) 1 amp NEB RQID [facility] Last Admin: 07/30/17 11:04 Dose: 1 amp Amlodipine Besylate (Norvasc -) 5 mg PO DAILY [facility] Last Admin: 07/30/17 09:14 Dose: 5 mg Aspirin (Asa -) 81 mg PO DAILY [facility] Last Admin: 07/30/17 09:14 Dose: 81 mg Atorvastatin Calcium (Lipitor -) 10 mg PO HS [facility] Last Admin: 07/30/17 00:30 Dose: Not Given Cholecalciferol (Vitamin D3 -) 2,000 unit PO DAILY [facility] Last Admin: 07/30/17 09:15 Dose: 2,000 unit Clotrimazole (Lotrisone Cream (Small Tube)) 1 applic TP BID [facility] Last Admin: 07/30/17 00:30 Dose: Not Given Docusate Sodium (Colace -) 100 mg PO Q8H PRN PRN Reason: CONSTIPATION Escitalopram Oxalate (Lexapro -) 10 mg PO DAILY [facility] Last Admin: 07/30/17 09:15 Dose: 10 mg Ferrous Sulfate (Feosol -) 325 mg PO DAILY [facility] Last Admin: 07/30/17 09:14 Dose: 325 mg Heparin Sodium (Porcine) (Heparin -) 5,000 unit SQ Q8H-IV [facility] Last Admin: 07/30/17 09:15 Dose: 5,000 unit Meclizine HCl (Antivert -) 25 mg PO BID [facility] Last Admin: 07/30/17 09:15 Dose: 25 mg Methylprednisolone Sodium Succinate (Solu-Medrol -) 40 mg IVPUSH Q8H-IV [facility] Mirtazapine (Remeron -) 7.5 mg PO HS [facility] Last Admin: 07/30/17 00:30 Dose: Not Given Nystatin (Mycostatin Cream -) 1 applic TP BID [facility] Last Admin: 07/30/17 00:02 Dose: Not Given Pantoprazole Sodium (Protonix -) 40 mg PO DAILY [facility] Last Admin: 07/30/17 09:14 Dose: 40 mg Senna (Senna -) 1 tab PO HS [facility] Last Admin: 07/30/17 00:30 Dose: Not Given Sodium Chloride (Sodium Chloride Tablet -) 1 gm PO DAILY [facility] Last Admin: 07/30/17 09:15 Dose: 1 gm Thyroid ([place] Thyroid -) 60 mg PO 0700 [facility] Last Admin: 07/30/17 06:58 Dose: 60 mg Ambulatory Orders Acetaminophen [Tylenol .Extra-Strength -] 650 mg PO TID PRN 05/24/15 Aspirin [ASA -] 81 mg PO DAILY 05/24/15 Atorvastatin Calcium 10 mg PO HS 05/24/15 Cholecalciferol (Vitamin D3) [Vitamin D3] 2,000 unit PO DAILY 05/24/15 Docusate Sodium 100 mg PO DAILY 05/24/15 Escitalopram Oxalate [Lexapro -] 10 mg PO DAILY 05/24/15 Ferrous Sulfate 325 mg PO DAILY 05/24/15 Mirtazapine 7.5 mg PO HS 05/24/15 Omeprazole [Prilosec] 40 mg PO DAILY 05/24/15 Amlodipine Besylate 5 mg PO DAILY 04/22/17 Hypromellose 0.5% Opth Soln [Artificial Tears] 1 - 2 drop TID 04/22/17 Meclizine HCl 25 mg PO BID PRN 04/22/17 Sennosides [Senna] 8.6 mg PO HS 04/22/17 Thyroid [[place] Thyroid] 60 mg PO DAILY 04/22/17 Sodium Chloride Tablet - 1 gm PO DAILY #30 tablet 04/28/17 Budesonide/Formeterol Fumarate [SYMBICORT 80/4.5mcg -] 2 inh PO BID 07/29/17 Olanzapine [Zyprexa] 2.5 mg PO HS 07/29/17 Travoprost [Travatan Z] 5 ml OU HS 07/29/17 ECHO 07/30: EF-55-60%, RV normal size and function. Mild mitral annular calcification, Mild MR, mild TR, mild AR. Elevated RV systolic pressure 30- 40mmHg. No pericardial effusion. ASSESSMENT/PLAN: 87 yo F with a PMHx of COPD and asthma, hypothyroid, GERD, hx of colostomy and hypertension presents with acute shortness of breath likely secondary to COPD exacerbation #COPD Exacerbation: - No smoking hx, likely asthma induced -albuterol- Q4H -albuterol/ipratropium inhalers Q6 Jak -iv solumedrol changed from bid to Q8H -zithromax given by ED -monitor O2 sat -2L O2 nasal cannula -In patient -get echo -2nd troponin at midnight #Neutropenic: -Absolute neutropenic count-over 1000 -Neutropenic diet -Neutropenic precautions #UTI: patient was diagnosed with UTI on 07/23 and given a 7 day course of bactrim , she is on day 6 per senior care record -Completed bactrim #CAD: chronic, no symptoms to suggest ACS -EKG new RBBB otherwise NSR w/ sinus arrhythmia -continue ASA -continue atorvastatin -echocardiogram- see above -troponin- negative x2 #Hyponatremia: patient is chronically hyponatremic, 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 -continue home dose of sodium supplementation #Hypothyroid: TFTs not too deviated -keep thyroid medication at 60 for now #Hypertension: patient is mildly hypertensive -continue amlodipine 5mg QD #FEN: -Received normal saline -chronically hyponatremic, continue sodium pills and recheck BMP -low sodium diet #Prophylaxis -heparin prophylaxis 5000 TID #Disposition -med-surg obs Visit type - Emergency Visit Emergency Visit: Yes ED Registration Date: 07/30/17 Care time: The patient presented to the Emergency Department on the above date and was hospitalized for further evaluation of their emergent condition. - New Patient This patient is new to me today: Yes Date on this admission: 07/30/17 - Critical Care Critical Care patient: No - Discharge Referral Referred to [facility] Med [facility] No
--- NOTE | 2017-07-30 14:04 | PN ---
Teaching Attending Note Name of Resident: Brinda Espinoza ATTENDING PHYSICIAN STATEMENT I saw and evaluated the patient. I reviewed the resident's note and discussed the case with the resident. I agree with the resident's findings and plan as documented with exceptions below. SUBJECTIVE: Patient seen and examined, breathing improved. No new fevers/chills. Denies any new cough or chest pain. OBJECTIVE: Vital Signs Period Temp Pulse Resp BP Sys/Duron Pulse Ox Last 24 Hr 98.2 F-98.8 F 73-90 16-20 100-160/48-73 91-99 Intake & Output 07/27/17 07/28/17 07/29/17 07/30/17 23:59 23:59 23:59 23:59 Weight 157 lb 11.2 oz General: sitting in bed, mild tachypnea but able to speak in full sentences Chest: bilateral scattered wheezing, positive air entry Abdomen:soft, obese, NT extremities: no edema Home Medication List Medication Instructions Recorded Confirmed Type Acetaminophen [Tylenol 650 mg PO TID PRN 05/24/15 07/29/17 History .Extra-Strength -] Albuterol Sulfate [Proair Hfa -] 1 - 2 inh PO TID PRN 05/24/15 04/22/17 History Aspirin [ASA -] 81 mg PO DAILY 05/24/15 07/29/17 History Atorvastatin Calcium 10 mg PO HS 05/24/15 07/29/17 History Cholecalciferol (Vitamin D3) 2,000 unit PO DAILY 05/24/15 07/29/17 History [Vitamin D3] Docusate Sodium 100 mg PO DAILY 05/24/15 07/29/17 History Escitalopram Oxalate [Lexapro -] 10 mg PO DAILY 05/24/15 07/29/17 History Ferrous Sulfate 325 mg PO DAILY 05/24/15 07/29/17 History Ipratropium/Albuterol Sulfate 3 ml IH TID PRN 05/24/15 07/29/17 History [Iprat-Albut 0.5-3(2.5) mg/3 ml] Mirtazapine 7.5 mg PO HS 05/24/15 07/29/17 History Omeprazole [Prilosec] 40 mg PO DAILY 05/24/15 07/29/17 History Albuterol 2.5/Ipratropium 0.5 1 neb NEB Q4H PRN 05/30/15 04/22/17 History [Duoneb -] Amlodipine Besylate 5 mg PO DAILY 04/22/17 07/29/17 History Betamethasone/Propylene Glyc 15 gm TP BID 04/22/17 04/22/17 History [Betamethasone Dp Aug 0.05% Crm] Clotrimazole/Betamethasone Dip 15 gm TP BID 04/22/17 04/22/17 History [Clotrimazole-Betamethasone Crm] Hypromellose 0.5% Opth Soln 1 - 2 drop TID 04/22/17 07/29/17 History [Artificial Tears] Meclizine HCl 25 mg PO BID PRN 04/22/17 07/29/17 History Menthol [Bengay Ultra Strength] 1 each TP ASDIR 04/22/17 04/22/17 History Nystatin Cream [Mycostatin Cream -] 1 applic TP BID 04/22/17 04/22/17 History Sennosides [Senna] 8.6 mg PO HS 04/22/17 07/29/17 History Thyroid [[place]sworth Thyroid] 60 mg PO DAILY 04/22/17 07/29/17 History Budesonide/Formeterol Fumarate 2 inh PO BID 07/29/17 07/29/17 History [SYMBICORT 80/4.5mcg -] Olanzapine [Zyprexa] 2.5 mg PO HS 07/29/17 07/29/17 History Sulfamethoxazole/Trimethoprim 1 tab PO BID 07/29/17 07/29/17 History [Bactrim Ds -] Travoprost [Travatan Z] 5 ml OU HS 07/29/17 07/29/17 History Active Medications Generic Name Dose Route Start Last Admin Trade Name Freq PRN Reason Stop Dose Admin Albuterol Sulfate 1 amp 07/30/17 07:43 Ventolin 0.083% Nebulizer Soln - NEB Q4H PRN ASTHMA Albuterol/Ipratropium 1 amp 07/30/17 08:30 07/30/17 11:04 Duoneb - NEB 1 amp RQID SHONNA Administration Amlodipine Besylate 5 mg 07/30/17 10:00 07/30/17 09:14 Norvasc - PO 5 mg DAILY SHONNA Administration Aspirin 81 mg 07/30/17 10:00 07/30/17 09:14 Asa - PO 81 mg DAILY SHONNA Administration Atorvastatin Calcium 10 mg 07/29/17 22:00 07/30/17 00:30 Lipitor - PO Not Given HS SHONNA Cholecalciferol 2,000 unit 07/30/17 10:00 07/30/17 09:15 Vitamin D3 - PO 2,000 unit DAILY SHONNA Administration Clotrimazole 1 applic 07/29/17 22:00 07/30/17 00:30 Lotrisone Cream (Small Tube) TP Not Given BID SHONNA Docusate Sodium 100 mg 07/29/17 19:32 Colace - PO Q8H PRN CONSTIPATION Escitalopram Oxalate 10 mg 07/30/17 10:00 07/30/17 09:15 Lexapro - PO 10 mg DAILY SHONNA Administration Ferrous Sulfate 325 mg 07/30/17 10:00 07/30/17 09:14 Feosol - PO 325 mg DAILY SHONNA Administration Heparin Sodium (Porcine) 5,000 unit 07/29/17 19:45 07/30/17 09:15 Heparin - SQ 5,000 unit Q8H-IV SHONNA Administration Meclizine HCl 25 mg 07/29/17 22:00 07/30/17 09:15 Antivert - PO 25 mg BID SHONNA Administration Methylprednisolone Sodium Succinate 40 mg 07/30/17 18:00 Solu-Medrol - IVPUSH Q8H-IV SHONNA Mirtazapine 7.5 mg 07/29/17 22:00 07/30/17 00:30 Remeron - PO Not Given HS [facility] Nystatin 1 applic 07/29/17 22:00 07/30/17 00:02 Mycostatin Cream - TP Not Given BID SHONNA Pantoprazole Sodium 40 mg 07/30/17 10:00 07/30/17 09:14 Protonix - PO 40 mg DAILY SHONNA Administration Senna 1 tab 07/29/17 22:00 07/30/17 00:30 Senna - PO Not Given HS SHONNA Sodium Chloride 1 gm 07/30/17 10:00 07/30/17 09:15 Sodium Chloride Tablet - PO 1 gm DAILY SHONNA Administration Thyroid 60 mg 07/30/17 07:00 07/30/17 06:58 Wadsworth Thyroid - PO 60 mg 0700 SHONNA Administration Laboratory Results - last 24 hr 07/29/17 07/29/17 07/29/17 17:34 17:34 17:41 WBC 3.7 L D RBC 3.73 Hgb 12.0 Hct 35.7 MCV 95.7 MCH 32.3 MCHC 33.8 RDW 13.4 Plt Count 190 D MPV 7.2 L Total Counted Neutrophils % 62.1 D Neutrophils % (Manual) Band Neutrophils % Lymphocytes % 31.8 D Lymphocytes % (Manual) Monocytes % 6.1 D Monocytes % (Manual) Eosinophils % 0.0 Eosinophils % (Manual) Basophils % 0.0 Basophils % (Manual) Myelocytes % (Man) Promyelocytes % (Man) Blast Cells % (Manual) Nucleated RBC % 0 Metamyelocytes Differential Comment Hypersegmented Neuts Plasma Cells Smudge Cells Other Cell Type Hypochromia Toxic Granulation Dohle Bodies Polychromasia Poikilocytosis Basophilic Stippling Anisocytosis Microcytosis Macrocytosis Spherocytes Siderocytes Sickle Cells Target Cells Tear Drop Cells Ovalocytes Stomatocytes Helmet Cells Vance-Balta Bodies [place] Rings Jass Cells Acanthocytes (Spur) Rouleaux Fragmented RBCs Schistocytes Anticoagulation Therapy Puncture Site ABG pH ABG pCO2 at Pt Temp ABG pO2 at Pt Temp ABG HCO3 ABG O2 Sat (Measured) ABG O2 Content ABG Base Excess Santosh Test VBG pH 7.38 POC VBG pCO2 41.3 D POC VBG pO2 56.9 H D Mixed VBG HCO3 24.3 Carboxyhemoglobin Methemoglobin O2 Delivery Device Oxygen Flow Rate Vent Mode Vent Rate Mechanical Rate Pressure Support Vent Sodium Potassium Chloride Carbon Dioxide Anion Gap BUN Creatinine Creat Clearance w eGFR Random Glucose Lactic Acid Calcium Phosphorus Magnesium Total Bilirubin AST ALT Alkaline Phosphatase Creatine Kinase Troponin I B-Natriuretic Peptide Total Protein Albumin TSH 5.95 H Free T4 0.63 L Urine Color Urine Appearance Urine pH Ur Specific Marion Urine Protein Urine Glucose (UA) Urine Ketones Urine Blood Urine Nitrite Urine Bilirubin Urine Urobilinogen Ur Leukocyte Esterase 07/29/17 07/29/17 07/29/17 17:41 17:42 17:58 WBC RBC Hgb Hct MCV MCH MCHC RDW Plt Count MPV Total Counted Neutrophils % Neutrophils % (Manual) Band Neutrophils % Lymphocytes % Lymphocytes % (Manual) Monocytes % Monocytes % (Manual) Eosinophils % Eosinophils % (Manual) Basophils % Basophils % (Manual) Myelocytes % (Man) Promyelocytes % (Man) Blast Cells % (Manual) Nucleated RBC % Metamyelocytes Differential Comment Hypersegmented Neuts Plasma Cells Smudge Cells Other Cell Type Hypochromia Toxic Granulation Dohle Bodies Polychromasia Poikilocytosis Basophilic Stippling Anisocytosis Microcytosis Macrocytosis Spherocytes Siderocytes Sickle Cells Target Cells Tear Drop Cells Ovalocytes Stomatocytes Helmet Cells Vance-Balta Bodies [place] Rings Comstock Cells Acanthocytes (Spur) Rouleaux Fragmented RBCs Schistocytes Anticoagulation Therapy No Result Required. Puncture Site Right radial ABG pH 7.41 ABG pCO2 at Pt Temp 39.7 ABG pO2 at Pt Temp 62.6 L D ABG HCO3 24.4 ABG O2 Sat (Measured) 91.6 ABG O2 Content 14.2 L ABG Base Excess 0.3 Santosh Test Positive VBG pH POC VBG pCO2 POC VBG pO2 Mixed VBG HCO3 Carboxyhemoglobin 1.3 Methemoglobin 1.6 H O2 Delivery Device Room air Oxygen Flow Rate 21% Vent Mode No Result Required. Vent Rate No Result Required. Mechanical Rate No Result Required. Pressure Support Vent No Result Required. Sodium 130 L Potassium 4.7 Chloride 96 L Carbon Dioxide 26 Anion Gap 8 BUN 19 H Creatinine 1.2 H Creat Clearance w eGFR 42.30 Random Glucose 127 H Lactic Acid 1.2 Calcium 8.6 Phosphorus Magnesium Total Bilirubin 0.3 AST 22 ALT 19 Alkaline Phosphatase 94 Creatine Kinase 128 Troponin I < 0.02 B-Natriuretic Peptide 1104.26 H Total Protein 8.0 Albumin 4.2 TSH Free T4 Urine Color Urine Appearance Urine pH Ur Specific Marion Urine Protein Urine Glucose (UA) Urine Ketones Urine Blood Urine Nitrite Urine Bilirubin Urine Urobilinogen Ur Leukocyte Esterase 07/30/17 07/30/17 07/30/17 01:01 01:02 06:30 WBC 2.1 L D RBC 3.24 L Hgb 10.4 L D Hct 31.0 L MCV 95.8 MCH 31.9 MCHC 33.3 RDW 13.3 Plt Count 171 MPV 7.4 L Total Counted Neutrophils % Neutrophils % (Manual) Band Neutrophils % Lymphocytes % Lymphocytes % (Manual) Monocytes % Monocytes % (Manual) Eosinophils % Eosinophils % (Manual) Basophils % Basophils % (Manual) Myelocytes % (Man) Promyelocytes % (Man) Blast Cells % (Manual) Nucleated RBC % Metamyelocytes Differential Comment Hypersegmented Neuts Plasma Cells Smudge Cells Other Cell Type Hypochromia Toxic Granulation Dohle Bodies Polychromasia Poikilocytosis Basophilic Stippling Anisocytosis Microcytosis Macrocytosis Spherocytes Siderocytes Sickle Cells Target Cells Tear Drop Cells Ovalocytes Stomatocytes Helmet Cells Vance-Balta Bodies [place] Rings Jass Cells Acanthocytes (Spur) Rouleaux Fragmented RBCs Schistocytes Anticoagulation Therapy Puncture Site ABG pH ABG pCO2 at Pt Temp ABG pO2 at Pt Temp ABG HCO3 ABG O2 Sat (Measured) ABG O2 Content ABG Base Excess Santosh Test VBG pH POC VBG pCO2 POC VBG pO2 Mixed VBG HCO3 Carboxyhemoglobin Methemoglobin O2 Delivery Device Oxygen Flow Rate Vent Mode Vent Rate Mechanical Rate Pressure Support Vent Sodium Potassium Chloride Carbon Dioxide Anion Gap BUN Creatinine Creat Clearance w eGFR Random Glucose Lactic Acid Calcium Phosphorus Magnesium Total Bilirubin AST ALT Alkaline Phosphatase Creatine Kinase 89 Troponin I < 0.02 B-Natriuretic Peptide Total Protein Albumin TSH Free T4 Urine Color Ltyellow Urine Appearance Clear Urine pH 5.0 Ur Specific Marion 1.014 Urine Protein Negative Urine Glucose (UA) Negative Urine Ketones Trace H Urine Blood Negative Urine Nitrite Negative Urine Bilirubin Negative Urine Urobilinogen Negative Ur Leukocyte Esterase Negative 07/30/17 07/30/17 06:30 09:00 WBC 2.2 L RBC 3.18 L Hgb 10.3 L Hct 30.5 L MCV 95.9 MCH 32.3 MCHC 33.7 RDW 13.4 Plt Count 154 MPV 7.5 Total Counted Cancelled Neutrophils % 48.8 D Neutrophils % (Manual) Cancelled Band Neutrophils % Cancelled Lymphocytes % 45.2 H D Lymphocytes % (Manual) Cancelled Monocytes % 5.9 Monocytes % (Manual) Cancelled Eosinophils % 0.0 Eosinophils % (Manual) Cancelled Basophils % 0.1 D Basophils % (Manual) Cancelled Myelocytes % (Man) Cancelled Promyelocytes % (Man) Cancelled Blast Cells % (Manual) Cancelled Nucleated RBC % 0 Metamyelocytes Cancelled Differential Comment Cancelled Hypersegmented Neuts Cancelled Plasma Cells Cancelled Smudge Cells Cancelled Other Cell Type Cancelled Hypochromia Cancelled Toxic Granulation Cancelled Dohle Bodies Cancelled Polychromasia Cancelled Poikilocytosis Cancelled Basophilic Stippling Cancelled Anisocytosis Cancelled Microcytosis Cancelled Macrocytosis Cancelled Spherocytes Cancelled Siderocytes Cancelled Sickle Cells Cancelled Target Cells Cancelled Tear Drop Cells Cancelled Ovalocytes Cancelled Stomatocytes Cancelled Helmet Cells Cancelled Vance-Balta Bodies Cancelled [place] Rings Cancelled Comstock Cells Cancelled Acanthocytes (Spur) Cancelled Rouleaux Cancelled Fragmented RBCs Cancelled Schistocytes Cancelled Anticoagulation Therapy Puncture Site ABG pH ABG pCO2 at Pt Temp ABG pO2 at Pt Temp ABG HCO3 ABG O2 Sat (Measured) ABG O2 Content ABG Base Excess Santosh Test VBG pH POC VBG pCO2 POC VBG pO2 Mixed VBG HCO3 Carboxyhemoglobin Methemoglobin O2 Delivery Device Oxygen Flow Rate Vent Mode Vent Rate Mechanical Rate Pressure Support Vent Sodium 132 L Potassium 4.7 Chloride 97 L Carbon Dioxide 22 Anion Gap 13 BUN 23 H Creatinine 1.0 Creat Clearance w eGFR Random Glucose 122 H Lactic Acid Calcium 8.2 L Phosphorus 4.7 Magnesium 2.3 Total Bilirubin AST ALT Alkaline Phosphatase Creatine Kinase Troponin I B-Natriuretic Peptide Total Protein Albumin TSH Free T4 Urine Color Urine Appearance Urine pH Ur Specific Marion Urine Protein Urine Glucose (UA) Urine Ketones Urine Blood Urine Nitrite Urine Bilirubin Urine Urobilinogen Ur Leukocyte Esterase 2D echo results reviewed. 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 standing and prn nebs. Pre and post ambulatory oxygen sats noted. resume symbicort. Pulmonary consult. 2D echo reviewed. Patient with extensive bilateral wheezing, improved oxygenation and symptoms with steroids and nebs argue against PE. LE Duplex neg. Thyroid panel noted, continue armour thyroid. salt tablets, monitor Na levels. Continue amlodipine Reconcile home meds. DVTPPX with heparin Dispo pending clinical improvement. Plan discussed with patient in detail, all questions answered.
--- NOTE | 2017-07-30 15:27 | PN ---
Progress Note (short form) - Note Progress Note: PULMONARY CONSULTATION DICTATED 07/30/16 IMP ASTHMA/COPD EXACERBATION HTN GERD HYPONATREMIA CHRONIC PLAN IV STEROIDS INHALED BRONCHODILATORS O2 MONITOR PEAK FLOW INCENTIVE SPIROMETER MONITOR YOVANI [address] DR Problem List - Problems (1) Asthma-COPD overlap syndrome Code(s): J44.9 - CHRONIC OBSTRUCTIVE PULMONARY DISEASE, UNSPECIFIED (2) Hypothyroidism Code(s): E03.9 - HYPOTHYROIDISM, UNSPECIFIED Qualifiers: Hypothyroidism type: unspecified Qualified Code(s): E03.9 - Hypothyroidism , unspecified (3) Asthma with COPD with exacerbation Code(s): J44.1 - CHRONIC OBSTRUCTIVE PULMONARY DISEASE W (ACUTE) EXACERBATION; J45.901 - UNSPECIFIED ASTHMA WITH (ACUTE) EXACERBATION (4) Chronic hyponatremia Code(s): E87.1 - HYPO-OSMOLALITY AND HYPONATREMIA (5) GERD (gastroesophageal reflux disease) Code(s): K21.9 - GASTRO-ESOPHAGEAL REFLUX DISEASE WITHOUT ESOPHAGITIS (6) Hypertension Code(s): I10 - ESSENTIAL (PRIMARY) HYPERTENSION
[2017-07-30] MEDS ORDERED: methylPREDNISolone NA SUCC 40 MG/1 ML VIAL IVPUSH SCH (18:00)
[2017-07-30] MEDS: TIOTROPIUM BROMIDE 18 MCG CAPSULES IH SCH ×2 (18:29→21:55)
--- NOTE | 2017-07-30 21:36 | CONS ---
PULMONARY CONSULTATION DATE OF CONSULTATION: 07/30/2017 REFERRING PHYSICIAN: Terrence Cox MD The patient is an 87-year-old white female known to me from previous hospitalization with past medical history of COPD/asthma, hypothyroidism, GERD, history of colostomy, hypertension, hyponatremia, a halfway resident transferred to [facility] secondary to increasing shortness of breath, generalized weakness, and lethargy. Apparently, at the halfway, Nursing found her to be weak and lethargic. EMS was called. The patient was treated with DuoNebs and supplemental O2 with good clinical response and transferred to [facility] ER for further evaluation. In the emergency room, she was treated with inhaled bronchodilators, supplemental O2 with good clinical response, and transferred out to the medical floor for further management. Patient denies any chest pain, nausea, vomiting, or diaphoresis. Denies any hemoptysis. She is a nonsmoker. She denies any history of occupational exposure to chemicals or fumes. As stated before, she was recently hospitalized in April secondary to a COPD exacerbation. At the time, she was also noted to be mildly hyponatremic. At which time, she was evaluated by Dr. 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 PAST MEDICAL HISTORY: Again includes COPD, asthma, hypothyroidism, hyponatremia, GERD, history of colostomy, hypertension. REVIEW OF SYSTEMS: Positive cough. Positive shortness of breath. Positive wheezing. No chest pain. No palpitation. No abdominal pain. CURRENT MEDICATIONS: Include Symbicort 80/4.5 two puffs b.i.d., Solu-Medrol 40 q.8, heparin, Lexapro, Remeron, Lotrisone, Antivert, albuterol, DuoNeb, Colace, senna, Norvasc, sodium chloride, Lipitor, Feosol, aspirin, Mycostatin, Protonix, Alexander Thyroid, and vitamin D3. PHYSICAL EXAMINATION: General: The patient is an elderly white female, well developed, awake, alert, in no acute respiratory distress. Vital Signs: She is currently afebrile. Blood pressure is 132/70. Respiratory rate is 20. O2 saturation is 92% on 2 L. HEENT: Normocephalic, atraumatic. Neck: Supple. Heart: Regular. S1, S2. Chest: Bilateral wheezes throughout. Abdomen: Soft. Bowel sounds are positive. Extremities: No cyanosis or edema. LABORATORY DATA: Sodium is 132. BUN 23, creatinine 1.0. BNP is 1104. WBC is 2.2, hemoglobin 10.3, hematocrit 30.5, with a platelet count of 154,000. Chest x-ray: Poor inspiratory effort. No infiltrates and no effusions. Echocardiogram: Reveals normal right ventricular systolic function; normal ejection fraction, 55% to 60%. There is moderate aortic sclerosis, mild pulmonary hypertension. IMPRESSION: 1. Acute asthma and chronic obstructive pulmonary disease exacerbation. 2. Hyponatremia, chronic. 3. Gastroesophageal reflux disease. 4. Hyperlipidemia. 5. Hypothyroidism. PLAN: IV steroids, inhaled bronchodilators, supplemental O2. Monitor peak flow. Monitor serum electrolytes, serum sodium level. Incentive spirometer. FREEMAN MENDEZ M.D. QUIN/[id number]
[2017-07-30] MEDS: OLANZapine 2.5 MG TABLET PO SCH (21:55)
[2017-07-30] MEDS: BUDESONIDE/FORMETEROL FUMARATE 80/4.5 mcg INHALER IH SCH (23:46)
[2017-07-31] MEDS: methylPREDNISolone NA SUCC 40 MG/1 ML VIAL IVPUSH SCH ×3 (02:53→17:02)
[2017-07-31] MEDS: HEPARIN NA (PORCINE) 5,000 UNITS/ML 1ML VIAL SQ SCH ×3 (02:54→17:02)
[2017-07-31] MEDS: THYROID 60 MG TABLET PO SCH (06:17)
[2017-07-31 07:59] LABS: BASO % 0.1 % (0-2.0); HEMATOCRIT 32.4 % (32.4-45.2); HEMOGLOBIN 10.8 GM/dL (10.7-15.3); MCH 31.8 pg (25.7-33.7); MCHC 33.3 g/dl (32.0-36.0); MEAN CELL VOLUME 95.6 fl (80-96); MEAN PLT VOLUME 7.6 fl (7.5-11.1); MONO % 3.5 % (3.8-10.2); NEUT % 74.4 % (42.8-82.8); PLATELET COUNT 170 K/MM3 (134-434); RBC 3.38 M/mm3 (3.60-5.2); RDW 13.4 % (11.6-15.6); WHITE BLOOD COUNT 5.4 K/mm3 (4.0-10.0)
[2017-07-31 08:39] LABS: ALBUMIN 3.5 g/dl (3.4-5.0); BLOOD UREA NITROGEN 34 mg/dL (7-18); CALCIUM 8.6 mg/dL (8.5-10.1); CHLORIDE 100 mmol/L (98-107); GLUCOSE,RANDOM 143 mg/dL (74-106); MAGNESIUM 2.7 mg/dL (1.8-2.4); POTASSIUM 4.9 mmol/L (3.5-5.1); SODIUM 134 mmol/L (136-145)
--- NOTE | 2017-07-31 08:41 | PN ---
Physical Exam: SUBJECTIVE: Patient seen and examined. No new c/o overnight. Neutropenic precautions established. OBJECTIVE: Vital Signs Period Temp Pulse Resp BP Sys/Duron Pulse Ox Last 24 Hr 98.1 F-99.0 F 71-82 16-21 113-145/59-92 92-97 Vital Signs Temp 99.0 F 07/31/17 08:02 Pulse 82 07/31/17 08:02 Resp 20 07/31/17 08:02 BP 145/92 07/31/17 08:02 Pulse Ox 94 L 07/30/17 21:00 GENERAL: The patient is awake, alert, and fully oriented, on NC-2L LUNGS: Bilateral wheezes improved HEART: Regular rate and rhythm, S1, S2 without murmur, rub or gallop. ABDOMEN: Soft, nontender, nondistended, normoactive bowel sounds EXTREMITIES: 2+ pulses, warm, well-perfused, no edema. NEUROLOGICAL: AAOx3. Normal speech, ambulates with walker CBC, BMP 07/31/17 07:00 07/31/17 07:00 Laboratory Results - last 24 hr 07/30/17 07/30/17 07/31/17 06:30 09:00 07:00 WBC 2.2 L 5.4 D RBC 3.18 L 3.38 L Hgb 10.3 L 10.8 Hct 30.5 L 32.4 MCV 95.9 95.6 MCH 32.3 31.8 MCHC 33.7 33.3 RDW 13.4 13.4 Plt Count 154 170 MPV 7.5 7.6 Total Counted Cancelled Neutrophils % 48.8 D 74.4 D Neutrophils % (Manual) Cancelled Band Neutrophils % Cancelled Lymphocytes % 45.2 H D 22.0 D Lymphocytes % (Manual) Cancelled Monocytes % 5.9 3.5 L Monocytes % (Manual) Cancelled Eosinophils % 0.0 0.0 Eosinophils % (Manual) Cancelled Basophils % 0.1 D 0.1 Basophils % (Manual) Cancelled Myelocytes % (Man) Cancelled Promyelocytes % (Man) Cancelled Blast Cells % (Manual) Cancelled Nucleated RBC % 0 0 Metamyelocytes Cancelled Differential Comment Cancelled Hypersegmented Neuts Cancelled Plasma Cells Cancelled Smudge Cells Cancelled Other Cell Type Cancelled Hypochromia Cancelled Toxic Granulation Cancelled Dohle Bodies Cancelled Polychromasia Cancelled Poikilocytosis Cancelled Basophilic Stippling Cancelled Anisocytosis Cancelled Microcytosis Cancelled Macrocytosis Cancelled Spherocytes Cancelled Siderocytes Cancelled Sickle Cells Cancelled Target Cells Cancelled Tear Drop Cells Cancelled Ovalocytes Cancelled Stomatocytes Cancelled Helmet Cells Cancelled [place] Bodies Cancelled [place] Rings Cancelled [place] Cells Cancelled Acanthocytes (Spur) Cancelled Rouleaux Cancelled Fragmented RBCs Cancelled Schistocytes Cancelled Carbon Dioxide 22 Anion Gap 13 BUN 23 H Creatinine 1.0 Random Glucose 122 H Calcium 8.2 L Phosphorus 4.7 Magnesium 2.3 Active Medications Generic Name Dose Route Start Last Admin Trade Name Freq PRN Reason Stop Dose Admin Albuterol Sulfate 1 amp 07/30/17 07:43 Ventolin 0.083% Nebulizer Soln - NEB Q4H PRN ASTHMA Amlodipine Besylate 5 mg 07/30/17 10:00 07/30/17 09:14 Norvasc - PO 5 mg DAILY SHONNA Administration Aspirin 81 mg 07/30/17 10:00 07/30/17 09:14 Asa - PO 81 mg DAILY SHONNA Administration Atorvastatin Calcium 10 mg 07/29/17 22:00 07/30/17 21:55 Lipitor - PO 10 mg HS SHONNA Administration Budesonide/Formoterol Fumarate 2 puff 07/30/17 22:00 07/30/17 23:46 Symbicort 80/4.5mcg - IH 2 puff BID SHONNA Administration Cholecalciferol 2,000 unit 07/30/17 10:00 07/30/17 09:15 Vitamin D3 - PO 2,000 unit DAILY SHONNA Administration Clotrimazole 1 applic 07/29/17 22:00 07/30/17 22:03 Lotrisone Cream (Small Tube) TP 1 applic BID SHONNA Administration Docusate Sodium 100 mg 07/29/17 19:32 Colace - PO Q8H PRN CONSTIPATION Escitalopram Oxalate 10 mg 07/30/17 10:00 07/30/17 09:15 Lexapro - PO 10 mg DAILY SHONNA Administration Ferrous Sulfate 325 mg 07/30/17 10:00 07/30/17 09:14 Feosol - PO 325 mg DAILY SHONNA Administration Heparin Sodium (Porcine) 5,000 unit 07/29/17 19:45 07/31/17 02:54 Heparin - SQ 5,000 unit Q8H-IV SHONNA Administration Meclizine HCl 25 mg 07/29/17 22:00 07/30/17 21:55 Antivert - PO 25 mg BID SHONNA Administration Methylprednisolone Sodium Succinate 40 mg 07/30/17 21:00 07/31/17 02:53 Solu-Medrol - IVPUSH 40 mg Q6H-IV SHONNA Administration Mirtazapine 7.5 mg 07/29/17 22:00 07/30/17 21:55 Remeron - PO 7.5 mg HS SHONNA Administration Nystatin 1 applic 07/29/17 22:00 07/30/17 22:03 Mycostatin Cream - TP 1 applic BID SHONNA Administration Olanzapine 2.5 mg 07/30/17 22:00 07/30/17 21:55 Zyprexa - PO 2.5 mg HS SHONNA Administration Pantoprazole Sodium 40 mg 07/30/17 10:00 07/30/17 09:14 Protonix - PO 40 mg DAILY SHONNA Administration Senna 1 tab 07/29/17 22:00 07/30/17 21:55 Senna - PO 1 tab HS SHONNA Administration Sodium Chloride 1 gm 07/30/17 10:00 07/30/17 09:15 Sodium Chloride Tablet - PO 1 gm DAILY SHONNA Administration Thyroid 60 mg 07/30/17 07:00 07/31/17 06:17 [place] Thyroid - PO 60 mg 0700 SHONNA Administration Tiotropium [place] 1 puff 07/30/17 16:00 07/30/17 21:55 Spiriva - IH 1 puff DAILY SHONNA Administration Ambulatory Orders Acetaminophen [Tylenol .Extra-Strength -] 650 mg PO TID PRN 05/24/15 Aspirin [ASA -] 81 mg PO DAILY 05/24/15 Atorvastatin Calcium 10 mg PO HS 05/24/15 Cholecalciferol (Vitamin D3) [Vitamin D3] 2,000 unit PO DAILY 05/24/15 Docusate Sodium 100 mg PO DAILY 05/24/15 Escitalopram Oxalate [Lexapro -] 10 mg PO DAILY 05/24/15 Ferrous Sulfate 325 mg PO DAILY 05/24/15 Mirtazapine 7.5 mg PO HS 05/24/15 Omeprazole [Prilosec] 40 mg PO DAILY 05/24/15 Amlodipine Besylate 5 mg PO DAILY 04/22/17 Hypromellose 0.5% Opth Soln [Artificial Tears] 1 - 2 drop TID 04/22/17 Meclizine HCl 25 mg PO BID PRN 04/22/17 Sennosides [Senna] 8.6 mg PO HS 04/22/17 Thyroid [[place] Thyroid] 60 mg PO DAILY 04/22/17 Sodium Chloride Tablet - 1 gm PO DAILY #30 tablet 04/28/17 Budesonide/Formeterol Fumarate [SYMBICORT 80/4.5mcg -] 2 inh PO BID 07/29/17 Olanzapine [Zyprexa] 2.5 mg PO HS 07/29/17 Travoprost [Travatan Z] 5 ml OU HS 07/29/17 Current Medications Albuterol Sulfate (Ventolin 0.083% Nebulizer Soln -) 1 amp NEB Q4H PRN PRN Reason: ASTHMA Albuterol/Ipratropium (Duoneb -) 1 amp NEB RQID [facility] Amlodipine Besylate (Norvasc -) 5 mg PO DAILY [facility] Last Admin: 07/31/17 09:03 Dose: 5 mg Aspirin (Asa -) 81 mg PO DAILY [facility] Last Admin: 07/31/17 09:03 Dose: 81 mg Atorvastatin Calcium (Lipitor -) 10 mg PO HS [facility] Last Admin: 07/30/17 21:55 Dose: 10 mg Budesonide/Formoterol Fumarate (Symbicort 80/4.5mcg -) 2 puff IH BID [facility] Last Admin: 07/31/17 09:05 Dose: 2 puff Cholecalciferol (Vitamin D3 -) 2,000 unit PO DAILY [facility] Last Admin: 07/31/17 09:03 Dose: 2,000 unit Clotrimazole (Lotrisone Cream (Small Tube)) 1 applic TP BID [facility] Last Admin: 07/31/17 09:04 Dose: 1 applic Docusate Sodium (Colace -) 100 mg PO Q8H PRN PRN Reason: CONSTIPATION Escitalopram Oxalate (Lexapro -) 10 mg PO DAILY [facility] Last Admin: 07/31/17 09:02 Dose: 10 mg Ferrous Sulfate (Feosol -) 325 mg PO DAILY [facility] Last Admin: 07/31/17 09:03 Dose: 325 mg Heparin Sodium (Porcine) (Heparin -) 5,000 unit SQ Q8H-IV [facility] Last Admin: 07/31/17 09:04 Dose: 5,000 unit Meclizine HCl (Antivert -) 25 mg PO BID [facility] Last Admin: 07/31/17 09:03 Dose: 25 mg Methylprednisolone Sodium Succinate (Solu-Medrol -) 40 mg IVPUSH Q8H-IV [facility] Last Admin: 07/31/17 09:15 Dose: 40 mg Mirtazapine (Remeron -) 7.5 mg PO HS [facility] Last Admin: 07/30/17 21:55 Dose: 7.5 mg Nystatin (Mycostatin Cream -) 1 applic TP BID [facility] Last Admin: 07/31/17 09:04 Dose: 1 applic Olanzapine (Zyprexa -) 2.5 mg PO HS [facility] Last Admin: 07/30/17 21:55 Dose: 2.5 mg Pantoprazole Sodium (Protonix -) 40 mg PO DAILY [facility] Last Admin: 07/31/17 09:03 Dose: 40 mg Senna (Senna -) 1 tab PO HS [facility] Last Admin: 07/30/17 21:55 Dose: 1 tab Sodium Chloride (Sodium Chloride Tablet -) 1 gm PO DAILY [facility] Last Admin: 07/31/17 09:05 Dose: 1 gm Thyroid ([place] Thyroid -) 60 mg PO 0700 [facility] Last Admin: 07/31/17 06:17 Dose: 60 mg ECHO 07/30: EF-55-60%, RV normal size and function. Mild mitral annular calcification, Mild MR, mild TR, mild AR. Elevated RV systolic pressure 30- 40mmHg. No pericardial effusion. ASSESSMENT/PLAN: 87 yo F with a PMHx of COPD and asthma, hypothyroid, GERD, hx of colostomy and hypertension presents with acute shortness of breath likely secondary to COPD exacerbation #COPD Exacerbation: -albuterol- Q4H -albuterol/ipratropium inhalers Q6 [facility] -Home spiriva held -On solumed 40mg QH -monitor O2 sat-Pre and post-96-92 on room air -May discontinue NC oxygen #Neutropenia: -Resolved -Absolute neutropenic count-over 1000 yesterday, no longer leucopenic, could be 2/2 to outpatient bactrim use -Neutropenic diet -Neutropenic precautions #UTI: patient was diagnosed with UTI on 07/23 and given a 7 day course of bactrim , she [facility] 6/7 [facility] -Completed bactrim #CAD: chronic, no symptoms to suggest ACS -EKG new RBBB otherwise NSR w/ sinus arrhythmia -continue ASA -continue atorvastatin -echocardiogram- see above -troponin- negative x2 #Hyponatremia: patient is chronically hyponatremic, 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 - New Patient This patient is new to me today: No - Critical Care Critical Care patient: No - Discharge Referral Referred to [facility] No
[2017-07-31 08:43] LABS: ALK PHOS 73 U/L (45-117); ANION GAP 8 (8-16); BILIRUBIN,TOTAL 0.2 mg/dL (0.2-1.0); CO2 26 mmol/L (21-32); PHOSPHOROUS 4.2 mg/dL (2.5-4.9); SGOT/AST 20 U/L (15-37); SGPT/ALT 17 U/L (12-78)
--- NOTE | 2017-07-31 08:54 | PN ---
Teaching Attending Note Name of Resident: Brinda Espinoza ATTENDING PHYSICIAN STATEMENT I saw and evaluated the patient. I reviewed the resident's note and discussed the case with the resident. I agree with the resident's findings and plan as documented with exceptions below. SUBJECTIVE: Patient seen and examined, breathing with some improvement, no new complaints. OBJECTIVE: Vital Signs Period Temp Pulse Resp BP Sys/Duron Pulse Ox Last 24 Hr 98.1 F-99.0 F 71-82 16-21 113-145/59-92 92-97 Intake & Output 07/28/17 07/29/17 07/30/17 07/31/17 23:59 23:59 23:59 23:59 Intake Total 250 Balance 250 Weight 157 lb 11.2 oz General: sitting in bed having breakfast, no acute distress Chest: bilateral extensive expiratory wheezing, positive air entry. Extremities: no edema or calf tenderness Home Medication List Medication Instructions Recorded Confirmed Type Acetaminophen [Tylenol 650 mg PO TID PRN 05/24/15 07/29/17 History .Extra-Strength -] Aspirin [ASA -] 81 mg PO DAILY 05/24/15 07/29/17 History Atorvastatin Calcium 10 mg PO HS 05/24/15 07/29/17 History Cholecalciferol (Vitamin D3) 2,000 unit PO DAILY 05/24/15 07/29/17 History [Vitamin D3] Docusate Sodium 100 mg PO DAILY 05/24/15 07/29/17 History Escitalopram Oxalate [Lexapro -] 10 mg PO DAILY 05/24/15 07/29/17 History Ferrous Sulfate 325 mg PO DAILY 05/24/15 07/29/17 History Mirtazapine 7.5 mg PO HS 05/24/15 07/29/17 History Omeprazole [Prilosec] 40 mg PO DAILY 05/24/15 07/29/17 History Amlodipine Besylate 5 mg PO DAILY 04/22/17 07/29/17 History Hypromellose 0.5% Opth Soln 1 - 2 drop TID 04/22/17 07/29/17 History [Artificial Tears] Meclizine HCl 25 mg PO BID PRN 04/22/17 07/29/17 History Sennosides [Senna] 8.6 mg PO HS 04/22/17 07/29/17 History Thyroid [[place] Thyroid] 60 mg PO DAILY 04/22/17 07/29/17 History Budesonide/Formeterol Fumarate 2 inh PO BID 07/29/17 07/29/17 History [SYMBICORT 80/4.5mcg -] Olanzapine [Zyprexa] 2.5 mg PO HS 07/29/17 07/29/17 History Travoprost [Travatan Z] 5 ml OU HS 07/29/17 07/29/17 History Active Medications Generic Name Dose Route Start Last Admin Trade Name Freq PRN Reason Stop Dose Admin Albuterol Sulfate 1 amp 07/30/17 07:43 Ventolin 0.083% Nebulizer Soln - NEB Q4H PRN ASTHMA Amlodipine Besylate 5 mg 07/30/17 10:00 07/30/17 09:14 Norvasc - PO 5 mg DAILY SHONNA Administration Aspirin 81 mg 07/30/17 10:00 07/30/17 09:14 Asa - PO 81 mg DAILY SHONNA Administration Atorvastatin Calcium 10 mg 07/29/17 22:00 07/30/17 21:55 Lipitor - PO 10 mg HS SHONNA Administration Budesonide/Formoterol Fumarate 2 puff 07/30/17 22:00 07/30/17 23:46 Symbicort 80/4.5mcg - IH 2 puff BID SHONNA Administration Cholecalciferol 2,000 unit 07/30/17 10:00 07/30/17 09:15 Vitamin D3 - PO 2,000 unit DAILY SHONNA Administration Clotrimazole 1 applic 07/29/17 22:00 07/30/17 22:03 Lotrisone Cream (Small Tube) TP 1 applic BID SHONNA Administration Docusate Sodium 100 mg 07/29/17 19:32 Colace - PO Q8H PRN CONSTIPATION Escitalopram Oxalate 10 mg 07/30/17 10:00 07/30/17 09:15 Lexapro - PO 10 mg DAILY SHONNA Administration Ferrous Sulfate 325 mg 07/30/17 10:00 07/30/17 09:14 Feosol - PO 325 mg DAILY SHONNA Administration Heparin Sodium (Porcine) 5,000 unit 07/29/17 19:45 07/31/17 02:54 Heparin - SQ 5,000 unit Q8H-IV SHONNA Administration Meclizine HCl 25 mg 07/29/17 22:00 07/30/17 21:55 Antivert - PO 25 mg BID SHONNA Administration Methylprednisolone Sodium Succinate 40 mg 07/31/17 10:00 Solu-Medrol - IVPUSH Q8H-IV SHONNA Mirtazapine 7.5 mg 07/29/17 22:00 07/30/17 21:55 Remeron - PO 7.5 mg HS SHONNA Administration Nystatin 1 applic 07/29/17 22:00 07/30/17 22:03 Mycostatin Cream - TP 1 applic BID SHONNA Administration Olanzapine 2.5 mg 07/30/17 22:00 07/30/17 21:55 Zyprexa - PO 2.5 mg HS SHONNA Administration Pantoprazole Sodium 40 mg 07/30/17 10:00 07/30/17 09:14 Protonix - PO 40 mg DAILY SHONNA Administration Senna 1 tab 07/29/17 22:00 07/30/17 21:55 Senna - PO 1 tab HS SHONNA Administration Sodium Chloride 1 gm 07/30/17 10:00 07/30/17 09:15 Sodium Chloride Tablet - PO 1 gm DAILY SHONNA Administration Thyroid 60 mg 07/30/17 07:00 07/31/17 06:17 [place] Thyroid - PO 60 mg 0700 SHONNA Administration Tiotropium [place] 1 puff 07/30/17 16:00 07/30/17 21:55 Spiriva - IH 1 puff DAILY SHONNA Administration Laboratory Results - last 24 hr 07/30/17 07/30/17 07/31/17 06:30 09:00 07:00 WBC 2.2 L 5.4 D RBC 3.18 L 3.38 L Hgb 10.3 L 10.8 Hct 30.5 L 32.4 MCV 95.9 95.6 MCH 32.3 31.8 MCHC 33.7 33.3 RDW 13.4 13.4 Plt Count 154 170 MPV 7.5 7.6 Total Counted Cancelled Neutrophils % 48.8 D 74.4 D Neutrophils % (Manual) Cancelled Band Neutrophils % Cancelled Lymphocytes % 45.2 H D 22.0 D Lymphocytes % (Manual) Cancelled Monocytes % 5.9 3.5 L Monocytes % (Manual) Cancelled Eosinophils % 0.0 0.0 Eosinophils % (Manual) Cancelled Basophils % 0.1 D 0.1 Basophils % (Manual) Cancelled Myelocytes % (Man) Cancelled Promyelocytes % (Man) Cancelled Blast Cells % (Manual) Cancelled Nucleated RBC % 0 0 Metamyelocytes Cancelled Differential Comment Cancelled Hypersegmented Neuts Cancelled Plasma Cells Cancelled Smudge Cells Cancelled Other Cell Type Cancelled Hypochromia Cancelled Toxic Granulation Cancelled Dohle Bodies Cancelled Polychromasia Cancelled Poikilocytosis Cancelled Basophilic Stippling Cancelled Anisocytosis Cancelled Microcytosis Cancelled Macrocytosis Cancelled Spherocytes Cancelled Siderocytes Cancelled Sickle Cells Cancelled Target Cells Cancelled Tear Drop Cells Cancelled Ovalocytes Cancelled Stomatocytes Cancelled Helmet Cells Cancelled [place] Bodies Cancelled [place] Rings Cancelled [place] Cells Cancelled Acanthocytes (Spur) Cancelled Rouleaux Cancelled Fragmented RBCs Cancelled Schistocytes Cancelled Sodium Potassium Chloride Carbon Dioxide 22 Anion Gap 13 BUN 23 H Creatinine 1.0 Creat Clearance w eGFR Random Glucose 122 H Calcium 8.2 L Phosphorus 4.7 Magnesium 2.3 Total Bilirubin AST ALT Alkaline Phosphatase Total Protein Albumin 07/31/17 07:00 WBC RBC Hgb Hct MCV MCH MCHC RDW Plt Count MPV Total Counted Neutrophils % Neutrophils % (Manual) Band Neutrophils % Lymphocytes % Lymphocytes % (Manual) Monocytes % Monocytes % (Manual) Eosinophils % Eosinophils % (Manual) Basophils % Basophils % (Manual) Myelocytes % (Man) Promyelocytes % (Man) Blast Cells % (Manual) Nucleated RBC % Metamyelocytes Differential Comment Hypersegmented Neuts Plasma Cells Smudge Cells Other Cell Type Hypochromia Toxic Granulation Dohle Bodies Polychromasia Poikilocytosis Basophilic Stippling Anisocytosis Microcytosis Macrocytosis Spherocytes Siderocytes Sickle Cells Target Cells Tear Drop Cells Ovalocytes Stomatocytes Helmet Cells [place] Bodies [place] Rings Jass Cells Acanthocytes (Spur) Rouleaux Fragmented RBCs Schistocytes Sodium 134 L Potassium 4.9 Chloride 100 Carbon Dioxide 26 Anion Gap 8 BUN 34 H Creatinine 1.0 Creat Clearance w eGFR 52.20 Random Glucose 143 H Calcium 8.6 Phosphorus 4.2 Magnesium 2.7 H Total Bilirubin 0.2 D AST 20 ALT 17 Alkaline Phosphatase 73 Total Protein 7.0 Albumin 3.5 Microbiology 07/29/17 17:34 Blood - Peripheral Venous Blood Culture - Preliminary NO GROWTH OBTAINED AFTER 24 HOURS, INCUBATION TO CONTINUE FOR 4 DAYS. 07/29/17 17:34 Blood - Peripheral Venous Blood Culture - Preliminary NO GROWTH OBTAINED AFTER 24 HOURS, INCUBATION TO CONTINUE FOR 4 DAYS. CXr results reviewed 2D echo results reviewed ASSESSMENT AND PLAN: 87 yof with PMHx of asthma, hypothyroidism, GERD, colostomy, HTN, Hyponatremia ( likely due to SIADH) admitted with dyspnea -Acute asthma exacerbation -RBBB -Hypothyroidism -GERD -Colostomy -HTN -Hyponatremia (?SIADH) Plan: Decrease solumedrol to 40 mg IV q8h. add standing nebs, continue prn nebs. Elevated BNP, 2D echo noted, Also elevated RV pressures, ongoing wheezing, with limited CXR. CT chest non contrast to assess pul parenchyma and congestion. 2D echo reviewed. Patient with extensive bilateral wheezing, improved oxygenation and symptoms with steroids and nebs argue against PE. LE Duplex neg. Continue symbicort. Pulmonary input appreciated. Thyroid panel noted, continue armour thyroid. salt tablets, monitor Na levels. Continue amlodipine Continue home psych meds. DVTPPX with heparin Dispo pending clinical improvement. Plan discussed with patient in detail, all questions answered
[2017-07-31] MEDS ORDERED: PT OWN MED DRAWER 7, Y5N ONE (08:59)
[2017-07-31] MEDS: ESCITALOPRAM OXALATE 10 MG TABLET (FP) PO SCH (09:02)
[2017-07-31] MEDS: amLODIPine BESYLATE 5 MG TABLET (FP) PO SCH (09:03)
[2017-07-31] MEDS: ASPIRIN 81 MG CHEWABLE TABLETS PO SCH (09:03)
[2017-07-31] MEDS: PANTOPRAZOLE 40 MG TABLET (FP) PO SCH (09:03)
[2017-07-31] MEDS: CHOLECALCIFEROL (VITAMIN D3) 1,000 UNIT TABLET (FP) PO SCH (09:03)
[2017-07-31] MEDS: FERROUS SO4 325 MG TABLET (FP) PO SCH (09:03)
[2017-07-31] MEDS: MECLIZINE HCL 25 MG TABLET (FP) PO SCH ×2 (09:03→21:42)
[2017-07-31] MEDS: CLOTRIMAZOLE/BETAMET DIPROP 15 GM TUBE TP SCH ×2 (09:04→21:39)
[2017-07-31] MEDS: NYSTATIN 100,000 UNIT/GM TOPICAL CREAM 15 GM TUBE TP SCH ×2 (09:04→21:40)
[2017-07-31] MEDS: BUDESONIDE/FORMETEROL FUMARATE 80/4.5 mcg INHALER IH SCH ×2 (09:05→21:40)
[2017-07-31] MEDS: SODIUM CHLORIDE 1 GM TABLET PO SCH (09:05)
[2017-07-31] MEDS: TIOTROPIUM BROMIDE 18 MCG CAPSULES IH SCH (09:05)
--- NOTE | 2017-07-31 10:17 | PN ---
Progress Note (short form) - Note Progress Note: PULMONARY States breathing better today. Less cough and wheezing. Last Vital Signs Temp Pulse Resp BP Pulse Ox 99.0 F 82 20 145/92 94 L 07/31/17 08:02 07/31/17 08:02 07/31/17 08:02 07/31/17 08:02 07/30/17 21:00 Gen: NAD at rest Heart: RRR Lung: scattered wheezes Abd: soft, nontender Ext: no edema CBC, BMP 07/31/17 07:00 07/31/17 07:00 Active Medications Albuterol Sulfate (Ventolin 0.083% Nebulizer Soln -) 1 amp NEB Q4H PRN PRN Reason: ASTHMA Albuterol/Ipratropium (Duoneb -) 1 amp NEB RQID [facility] Amlodipine Besylate (Norvasc -) 5 mg PO DAILY [facility] Last Admin: 07/31/17 09:03 Dose: 5 mg Aspirin (Asa -) 81 mg PO DAILY [facility] Last Admin: 07/31/17 09:03 Dose: 81 mg Atorvastatin Calcium (Lipitor -) 10 mg PO HS [facility] Last Admin: 07/30/17 21:55 Dose: 10 mg Budesonide/Formoterol Fumarate (Symbicort 80/4.5mcg -) 2 puff IH BID [facility] Last Admin: 07/31/17 09:05 Dose: 2 puff Cholecalciferol (Vitamin D3 -) 2,000 unit PO DAILY [facility] Last Admin: 07/31/17 09:03 Dose: 2,000 unit Clotrimazole (Lotrisone Cream (Small Tube)) 1 applic TP BID [facility] Last Admin: 07/31/17 09:04 Dose: 1 applic Docusate Sodium (Colace -) 100 mg PO Q8H PRN PRN Reason: CONSTIPATION Escitalopram Oxalate (Lexapro -) 10 mg PO DAILY [facility] Last Admin: 07/31/17 09:02 Dose: 10 mg Ferrous Sulfate (Feosol -) 325 mg PO DAILY [facility] Last Admin: 07/31/17 09:03 Dose: 325 mg Heparin Sodium (Porcine) (Heparin -) 5,000 unit SQ Q8H-IV [facility] Last Admin: 07/31/17 09:04 Dose: 5,000 unit Meclizine HCl (Antivert -) 25 mg PO BID [facility] Last Admin: 07/31/17 09:03 Dose: 25 mg Methylprednisolone Sodium Succinate (Solu-Medrol -) 40 mg IVPUSH Q8H-IV [facility] Last Admin: 07/31/17 09:15 Dose: 40 mg Mirtazapine (Remeron -) 7.5 mg PO HS [facility] Last Admin: 07/30/17 21:55 Dose: 7.5 mg Nystatin (Mycostatin Cream -) 1 applic TP BID [facility] Last Admin: 07/31/17 09:04 Dose: 1 applic Olanzapine (Zyprexa -) 2.5 mg PO HS [facility] Last Admin: 07/30/17 21:55 Dose: 2.5 mg Pantoprazole Sodium (Protonix -) 40 mg PO DAILY [facility] Last Admin: 07/31/17 09:03 Dose: 40 mg Senna (Senna -) 1 tab PO HS [facility] Last Admin: 07/30/17 21:55 Dose: 1 tab Sodium Chloride (Sodium Chloride Tablet -) 1 gm PO DAILY [facility] Last Admin: 07/31/17 09:05 Dose: 1 gm Thyroid ([place] Thyroid -) 60 mg PO 0700 [facility] Last Admin: 07/31/17 06:17 Dose: 60 mg Tiotropium [place] (Spiriva -) 1 puff IH DAILY [facility] Last Admin: 07/31/17 09:05 Dose: 1 puff A/P Acute COPD Exacerbation Pulmonary HTN HTN GERD Hyponatremia - agree with medrol taper - inhaled bronchodilators - will d/c spiriva as pt on duonebs, can resume upon discharge - O2 to keep SpO2 >90% - DVT prophylaxis
[2017-07-31] MEDS: ALBUTEROL SO4 2.5/IPRATROPIUM 0.5 INH SOL 3 ML VIAL.NEB. NEB SCH ×3 (11:45→20:50)
[2017-07-31] MEDS: MIRTAZAPINE 15 MG TABLET (FP) PO SCH (21:41)
[2017-07-31] MEDS: SENNOSIDES 8.6MG TABLET (FP) PO SCH (21:41)
[2017-07-31] MEDS: ATORVASTATIN CA 10 MG TABLET (FP) PO SCH (21:42)
[2017-07-31] MEDS: OLANZapine 2.5 MG TABLET PO SCH (21:42)
[2017-07-31] MEDS: ACETAMINOPHEN 325 MG TABLET (FP) PO PRN (21:51)
[2017-07-31] MEDS: ARTIFICIAL TEARS (POLYVINYL ALCOHOL 1.4%) OPTH DROPS OU SCH (22:37)
[2017-08-01] MEDS: HEPARIN NA (PORCINE) 5,000 UNITS/ML 1ML VIAL SQ SCH ×2 (02:20→09:50)
[2017-08-01] MEDS: methylPREDNISolone NA SUCC 40 MG/1 ML VIAL IVPUSH SCH (02:30)
[2017-08-01] MEDS: ARTIFICIAL TEARS (POLYVINYL ALCOHOL 1.4%) OPTH DROPS OU SCH ×3 (06:23→21:39)
[2017-08-01] MEDS: THYROID 60 MG TABLET PO SCH (06:23)
[2017-08-01] MEDS: ALBUTEROL SO4 2.5/IPRATROPIUM 0.5 INH SOL 3 ML VIAL.NEB. NEB SCH ×4 (07:50→20:52)
[2017-08-01 08:03] LABS: BASO % 0.1 % (0-2.0); HEMATOCRIT 34.4 % (32.4-45.2); HEMOGLOBIN 11.5 GM/dL (10.7-15.3); LYMPH % 14.9 % (8-40); MCH 32.3 pg (25.7-33.7); MCHC 33.3 g/dl (32.0-36.0); MEAN CELL VOLUME 96.8 fl (80-96); MEAN PLT VOLUME 7.4 fl (7.5-11.1); MONO % 3.1 % (3.8-10.2); NEUT % 81.9 % (42.8-82.8); PLATELET COUNT 181 K/MM3 (134-434); RBC 3.56 M/mm3 (3.60-5.2); RDW 13.4 % (11.6-15.6); WHITE BLOOD COUNT 7.6 K/mm3 (4.0-10.0)
[2017-08-01 08:51] LABS: ALBUMIN 3.9 g/dl (3.4-5.0); ANION GAP 7 (8-16); BILIRUBIN,TOTAL 0.2 mg/dL (0.2-1.0); BLOOD UREA NITROGEN 39 mg/dL (7-18); CALCIUM 8.7 mg/dL (8.5-10.1); CHLORIDE 100 mmol/L (98-107); CO2 28 mmol/L (21-32); CREATININE 1.1 mg/dL (0.55-1.02); GLUCOSE,RANDOM 134 mg/dL (74-106); MAGNESIUM 2.6 mg/dL (1.8-2.4); PHOSPHOROUS 3.7 mg/dL (2.5-4.9); POTASSIUM 4.8 mmol/L (3.5-5.1); SGOT/AST 18 U/L (15-37); SGPT/ALT 17 U/L (12-78); SODIUM 135 mmol/L (136-145); TOT PROT 7.3 g/dl (6.4-8.2)
[2017-08-01 08:52] LABS: ALK PHOS 73 U/L (45-117)
[2017-08-01] MEDS ORDERED: PT OWN MED DRAWER 7, Y5N ONE (09:49)
[2017-08-01] MEDS: ESCITALOPRAM OXALATE 10 MG TABLET (FP) PO SCH (09:50)
[2017-08-01] MEDS: predniSONE 20 MG TABLET (UD) PO SCH (09:50)
[2017-08-01] MEDS: amLODIPine BESYLATE 5 MG TABLET (FP) PO SCH (09:50)
[2017-08-01] MEDS: CHOLECALCIFEROL (VITAMIN D3) 1,000 UNIT TABLET (FP) PO SCH (09:50)
[2017-08-01] MEDS: SODIUM CHLORIDE 1 GM TABLET PO SCH (09:50)
[2017-08-01] MEDS: ASPIRIN 81 MG CHEWABLE TABLETS PO SCH (09:50)
[2017-08-01] MEDS: MECLIZINE HCL 25 MG TABLET (FP) PO SCH ×2 (09:50→21:38)
[2017-08-01] MEDS: NYSTATIN 100,000 UNIT/GM TOPICAL CREAM 15 GM TUBE TP SCH ×2 (09:51→21:40)
[2017-08-01] MEDS: PANTOPRAZOLE 40 MG TABLET (FP) PO SCH (09:51)
[2017-08-01] MEDS: BUDESONIDE/FORMETEROL FUMARATE 80/4.5 mcg INHALER IH SCH ×2 (09:51→22:40)
[2017-08-01] MEDS: FERROUS SO4 325 MG TABLET (FP) PO SCH (09:51)
[2017-08-01] MEDS: CLOTRIMAZOLE/BETAMET DIPROP 15 GM TUBE TP SCH ×2 (09:51→21:40)
--- NOTE | 2017-08-01 13:16 | PN ---
Progress Note (short form) - Note Progress Note: PULMONARY States breathing better today. Less cough and wheezing. Wants to go home. Last Vital Signs Temp Pulse Resp BP Pulse Ox 98.7 F 85 20 103/57 94 L 08/01/17 08:58 08/01/17 08:58 08/01/17 08:58 08/01/17 08:58 08/01/17 09:00 Gen: NAD at rest Heart: RRR Lung: scattered wheezes Abd: soft, nontender Ext: no edema CBC, BMP 08/01/17 06:25 08/01/17 06:25 Active Medications Acetaminophen (Tylenol -) 650 mg PO Q8H PRN PRN Reason: PAIN LEVEL 1 - 3 Last Admin: 07/31/17 21:51 Dose: 650 mg Albuterol Sulfate (Ventolin 0.083% Nebulizer Soln -) 1 amp NEB Q4H PRN PRN Reason: ASTHMA Albuterol/Ipratropium (Duoneb -) 1 amp NEB RQID [facility] [place] Last Admin: 08/01/17 11:25 Dose: 1 amp Amlodipine Besylate (Norvasc -) 5 mg PO DAILY [facility] [place] Last Admin: 08/01/17 09:50 Dose: 5 mg Artificial Tears (Artificial Tears) 1 drop OU TID [facility] [place] Last Admin: 08/01/17 06:23 Dose: 1 drop Aspirin (Asa -) 81 mg PO DAILY [facility] [place] Last Admin: 08/01/17 09:50 Dose: 81 mg Atorvastatin Calcium (Lipitor -) 10 mg PO HS [facility] [place] Last Admin: 07/31/17 21:42 Dose: 10 mg Budesonide/Formoterol Fumarate (Symbicort 80/4.5mcg -) 2 puff IH BID [facility] [place] Last Admin: 08/01/17 09:51 Dose: 2 puff Cholecalciferol (Vitamin D3 -) 2,000 unit PO DAILY [facility] [place] Last Admin: 08/01/17 09:50 Dose: 2,000 unit Clotrimazole (Lotrisone Cream (Small Tube)) 1 applic TP BID [facility] [place] Last Admin: 08/01/17 09:51 Dose: 1 applic Docusate Sodium (Colace -) 100 mg PO Q8H PRN PRN Reason: CONSTIPATION Escitalopram Oxalate (Lexapro -) 10 mg PO DAILY [facility] [place] Last Admin: 08/01/17 09:50 Dose: 10 mg Ferrous Sulfate (Feosol -) 325 mg PO DAILY [facility] [place] Last Admin: 08/01/17 09:51 Dose: 325 mg Heparin Sodium (Porcine) (Heparin -) 5,000 unit SQ Q8H-IV [facility] [place] Last Admin: 08/01/17 09:50 Dose: 5,000 unit Meclizine HCl (Antivert -) 25 mg PO BID [facility] [place] Last Admin: 08/01/17 09:50 Dose: 25 mg Mirtazapine (Remeron -) 7.5 mg PO HS [facility] [place] Last Admin: 07/31/17 21:41 Dose: 7.5 mg Nystatin (Mycostatin Cream -) 1 applic TP BID [facility] [place] Last Admin: 08/01/17 09:51 Dose: 1 applic Olanzapine (Zyprexa -) 2.5 mg PO HS [facility] [place] Last Admin: 07/31/17 21:42 Dose: 2.5 mg Pantoprazole Sodium (Protonix -) 40 mg PO DAILY [facility] [place] Last Admin: 08/01/17 09:51 Dose: 40 mg Prednisone (Deltasone -) 50 mg PO DAILY [facility] [place] Last Admin: 08/01/17 09:50 Dose: 50 mg Senna (Senna -) 1 tab PO HS [facility] [place] Last Admin: 07/31/17 21:41 Dose: 1 tab Sodium Chloride (Sodium Chloride Tablet -) 1 gm PO DAILY [facility] [place] Last Admin: 08/01/17 09:50 Dose: 1 gm Thyroid (Petty Thyroid -) 60 mg PO 0700 [facility] [place] Last Admin: 08/01/17 06:23 Dose: 60 mg A/P Acute COPD Exacerbation Pulmonary HTN HTN GERD Hyponatremia - agree with prednisone taper - inhaled bronchodilators - will d/c spiriva as pt on duonebs, can resume upon discharge - O2 to keep SpO2 >90% - DVT prophylaxis - can d/c from pulmonary standpoint
--- NOTE | 2017-08-01 13:19 | PN ---
Progress Note (short form) - Note Progress Note: Patient seen and examined. Breathing improved, eager to go home. Objective: Vital Signs Period Temp Pulse Resp BP Sys/Duron Pulse Ox Last 24 Hr 98 F-98.7 F 66-85 20-20 103-131/54-71 94-96 Intake & Output 07/29/17 07/30/17 07/31/17 08/01/17 23:59 23:59 23:59 23:59 Intake Total 250 840 540 Balance 250 840 540 Weight 157 lb 11.2 oz General: sitting in bed in no acute distress Chest: improved air entry, decreased bilateral wheezing Abdomen: soft, obese, NT Extremities: no edema Home Medication List Medication Instructions Recorded Confirmed Type Acetaminophen [Tylenol 650 mg PO TID PRN 05/24/15 07/29/17 History .Extra-Strength -] Aspirin [ASA -] 81 mg PO DAILY 05/24/15 07/29/17 History Atorvastatin Calcium 10 mg PO HS 05/24/15 07/29/17 History Cholecalciferol (Vitamin D3) 2,000 unit PO DAILY 05/24/15 07/29/17 History [Vitamin D3] Docusate Sodium 100 mg PO DAILY 05/24/15 07/29/17 History Escitalopram Oxalate [Lexapro -] 10 mg PO DAILY 05/24/15 07/29/17 History Ferrous Sulfate 325 mg PO DAILY 05/24/15 07/29/17 History Mirtazapine 7.5 mg PO HS 05/24/15 07/29/17 History Omeprazole [Prilosec] 40 mg PO DAILY 05/24/15 07/29/17 History Amlodipine Besylate 5 mg PO DAILY 04/22/17 07/29/17 History Hypromellose 0.5% Opth Soln 1 - 2 drop TID 04/22/17 07/29/17 History [Artificial Tears] Meclizine HCl 25 mg PO BID PRN 04/22/17 07/29/17 History Sennosides [Senna] 8.6 mg PO HS 04/22/17 07/29/17 History Thyroid [[place] Thyroid] 60 mg PO DAILY 04/22/17 07/29/17 History Budesonide/Formeterol Fumarate 2 inh PO BID 07/29/17 07/29/17 History [SYMBICORT 80/4.5mcg -] Olanzapine [Zyprexa] 2.5 mg PO HS 07/29/17 07/29/17 History Travoprost [Travatan Z] 5 ml OU HS 07/29/17 07/29/17 History Active Medications Generic Name Dose Route Start Last Admin Trade Name Freq PRN Reason Stop Dose Admin Acetaminophen 650 mg 07/31/17 17:31 07/31/17 21:51 Tylenol - PO 650 mg Q8H PRN Administration PAIN LEVEL 1 - 3 Albuterol Sulfate 1 amp 07/30/17 07:43 Ventolin 0.083% Nebulizer Soln - NEB Q4H PRN ASTHMA Albuterol/Ipratropium 1 amp 07/31/17 12:00 08/01/17 11:25 Duoneb - NEB 1 amp RQID [facility] Administration Amlodipine Besylate 5 mg 07/30/17 10:00 08/01/17 09:50 Norvasc - PO 5 mg DAILY [facility] Administration Artificial Tears 1 drop 07/31/17 22:00 08/01/17 06:23 Artificial Tears OU 1 drop TID [facility]ON[facility] Administration Aspirin 81 mg 07/30/17 10:00 08/01/17 09:50 Asa - PO 81 mg DAILY [facility] Administration Atorvastatin Calcium 10 mg 07/29/17 22:00 07/31/17 21:42 Lipitor - PO 10 mg HS [facility] Administration Budesonide/Formoterol Fumarate 2 puff 07/30/17 22:00 08/01/17 09:51 Symbicort 80/4.5mcg - IH 2 puff BID [facility] Administration Cholecalciferol 2,000 unit 07/30/17 10:00 08/01/17 09:50 Vitamin D3 - PO 2,000 unit DAILY [facility] Administration Clotrimazole 1 applic 07/29/17 22:00 08/01/17 09:51 Lotrisone Cream (Small Tube) TP 1 applic BID [facility] Administration Docusate Sodium 100 mg 07/29/17 19:32 Colace - PO Q8H PRN CONSTIPATION Escitalopram Oxalate 10 mg 07/30/17 10:00 08/01/17 09:50 Lexapro - PO 10 mg DAILY [facility] Administration Ferrous Sulfate 325 mg 07/30/17 10:00 08/01/17 09:51 Feosol - PO 325 mg DAILY [facility] Administration Heparin Sodium (Porcine) 5,000 unit 07/29/17 19:45 08/01/17 09:50 Heparin - SQ 5,000 unit Q8H-IV [facility] Administration Meclizine HCl 25 mg 07/29/17 22:00 08/01/17 09:50 Antivert - PO 25 mg BID [facility] Administration Mirtazapine 7.5 mg 07/29/17 22:00 07/31/17 21:41 Remeron - PO 7.5 mg HS [facility] Administration Nystatin 1 applic 07/29/17 22:00 08/01/17 09:51 Mycostatin Cream - TP 1 applic BID [facility] Administration Olanzapine 2.5 mg 07/30/17 22:00 07/31/17 21:42 Zyprexa - PO 2.5 mg HS [facility] Administration Pantoprazole Sodium 40 mg 07/30/17 10:00 08/01/17 09:51 Protonix - PO 40 mg DAILY [facility] Administration Prednisone 50 mg 08/01/17 10:00 08/01/17 09:50 Deltasone - PO 50 mg DAILY [facility] Administration Senna 1 tab 07/29/17 22:00 07/31/17 21:41 Senna - PO 1 tab HS [facility] Administration Sodium Chloride 1 gm 07/30/17 10:00 08/01/17 09:50 Sodium Chloride Tablet - PO 1 gm DAILY [facility] Administration Thyroid 60 mg 07/30/17 07:00 08/01/17 06:23 [place] Thyroid - PO 60 mg 0700 [facility] Administration Laboratory Results - last 24 hr 08/01/17 08/01/17 06:25 06:25 WBC 7.6 D RBC 3.56 L Hgb 11.5 Hct 34.4 MCV 96.8 H MCH 32.3 MCHC 33.3 RDW 13.4 Plt Count 181 MPV 7.4 L Neutrophils % 81.9 Lymphocytes % 14.9 D Monocytes % 3.1 L Eosinophils % 0.0 Basophils % 0.1 Nucleated RBC % 0 Sodium 135 L Potassium 4.8 Chloride 100 Carbon Dioxide 28 Anion Gap 7 L BUN 39 H Creatinine 1.1 H Creat Clearance w eGFR 46.77 Random Glucose 134 H Calcium 8.7 Phosphorus 3.7 Magnesium 2.6 H Total Bilirubin 0.2 AST 18 ALT 17 Alkaline Phosphatase 73 Total Protein 7.3 Albumin 3.9 Microbiology 07/29/17 17:34 Blood - Peripheral Venous Blood Culture - Preliminary NO GROWTH OBTAINED AFTER 48 HOURS, INCUBATION TO CONTINUE FOR 3 DAYS. 07/29/17 17:34 Blood - Peripheral Venous Blood Culture - Preliminary NO GROWTH OBTAINED AFTER 48 HOURS, INCUBATION TO CONTINUE FOR 3 DAYS. 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 Elevated BNP, 2D echo noted, Also elevated RV pressures, ongoing wheezing, with limited CXR. CT chest non contrast negative for new concerns. 2D echo reviewed. Patient with extensive bilateral wheezing, improved oxygenation and symptoms with steroids and nebs argue against PE. LE Duplex neg. Continue symbicort. Pulmonary input appreciated. Thyroid panel noted, continue armour thyroid. salt tablets, monitor Na levels. Continue amlodipine Continue home psych meds. PT eval noted. DVTPPX with heparin Dispo medically ready for d/c. Discussed with CM, NH unable to take the patient today. Plan for d/c tomorrow morning if no concerns. Plan discussed with patient, RN and CM in detail, all questions answered Visit type - Emergency Visit Emergency Visit: No - New Patient This patient is new to me today: No - Critical Care Critical Care patient: No
[2017-08-01] MEDS: ACETAMINOPHEN 325 MG TABLET (FP) PO PRN (21:38)
[2017-08-01] MEDS: MIRTAZAPINE 15 MG TABLET (FP) PO SCH (21:38)
[2017-08-01] MEDS: OLANZapine 2.5 MG TABLET PO SCH (21:38)
[2017-08-01] MEDS: ATORVASTATIN CA 10 MG TABLET (FP) PO SCH (21:39)
[2017-08-01] MEDS: SENNOSIDES 8.6MG TABLET (FP) PO SCH (21:45)
[2017-08-02] MEDS: HEPARIN NA (PORCINE) 5,000 UNITS/ML 1ML VIAL SQ SCH ×2 (03:30→09:18)
[2017-08-02] MEDS: ACETAMINOPHEN 325 MG TABLET (FP) PO PRN (06:30)
[2017-08-02] MEDS: ARTIFICIAL TEARS (POLYVINYL ALCOHOL 1.4%) OPTH DROPS OU SCH (06:31)
[2017-08-02] MEDS: THYROID 60 MG TABLET PO SCH (06:31)
[2017-08-02] MEDS: ALBUTEROL SO4 2.5/IPRATROPIUM 0.5 INH SOL 3 ML VIAL.NEB. NEB SCH ×2 (07:15→11:22)
[2017-08-02 08:25] VITALS: BP 132/74; PULSE 82; TEMP 97.9
[2017-08-02] MEDS ORDERED: PT OWN MED DRAWER 7, Y5N ONE (09:15)
[2017-08-02] MEDS: predniSONE 20 MG TABLET (UD) PO SCH (09:18)
[2017-08-02] MEDS: BUDESONIDE/FORMETEROL FUMARATE 80/4.5 mcg INHALER IH SCH (09:18)
[2017-08-02] MEDS: CHOLECALCIFEROL (VITAMIN D3) 1,000 UNIT TABLET (FP) PO SCH (09:19)
[2017-08-02] MEDS: ASPIRIN 81 MG CHEWABLE TABLETS PO SCH (09:19)
[2017-08-02] MEDS: MECLIZINE HCL 25 MG TABLET (FP) PO SCH (09:19)
[2017-08-02] MEDS: ESCITALOPRAM OXALATE 10 MG TABLET (FP) PO SCH (09:19)
[2017-08-02] MEDS: FERROUS SO4 325 MG TABLET (FP) PO SCH (09:19)
[2017-08-02] MEDS: PANTOPRAZOLE 40 MG TABLET (FP) PO SCH (09:19)
[2017-08-02] MEDS: amLODIPine BESYLATE 5 MG TABLET (FP) PO SCH (09:19)
[2017-08-02] MEDS: CLOTRIMAZOLE/BETAMET DIPROP 15 GM TUBE TP SCH (09:20)
[2017-08-02] MEDS: NYSTATIN 100,000 UNIT/GM TOPICAL CREAM 15 GM TUBE TP SCH (09:20)
--- NOTE | 2017-08-02 09:44 | DS ---
Physical Exam: SUBJECTIVE: Patient seen and examined, feeling good, no dyspnea or new complaints, eager to go home. OBJECTIVE: Vital Signs Period Temp Pulse Resp BP Sys/Duron Pulse Ox Last 24 Hr 97.5 F-98.1 F 61-82 18-20 126-135/64-74 94-94 PHYSICAL EXAM General: amublating in hallway in no acute distress Chest: improved lung entry, occasional expiratory wheezing, no rales Abdomen:soft, obese, NT, positive bowel sounds Extremities: no edema LABS Laboratory Tests 07/29/17 07/29/17 07/29/17 17:34 17:34 17:41 WBC 3.7 L D RBC 3.73 Hgb 12.0 Hct 35.7 MCV 95.7 MCH 32.3 MCHC 33.8 RDW 13.4 Plt Count 190 D MPV 7.2 L Total Counted Neutrophils % 62.1 D Neutrophils % (Manual) Band Neutrophils % Lymphocytes % 31.8 D Lymphocytes % (Manual) Monocytes % 6.1 D Monocytes % (Manual) Eosinophils % 0.0 Eosinophils % (Manual) Basophils % 0.0 Basophils % (Manual) Myelocytes % (Man) Promyelocytes % (Man) Blast Cells % (Manual) Nucleated RBC % 0 Metamyelocytes Differential Comment Hypersegmented Neuts Plasma Cells Smudge Cells Other Cell Type Hypochromia Toxic Granulation Dohle Bodies Polychromasia Poikilocytosis Basophilic Stippling Anisocytosis Microcytosis Macrocytosis Spherocytes Siderocytes Sickle Cells Target Cells Tear Drop Cells Ovalocytes Stomatocytes Helmet Cells [place] Bodies [place] Rings Jass Cells Acanthocytes (Spur) Rouleaux Fragmented RBCs Schistocytes Anticoagulation Therapy Puncture Site ABG pH ABG pCO2 at Pt Temp ABG pO2 at Pt Temp ABG HCO3 ABG O2 Sat (Measured) ABG O2 Content ABG Base Excess Santosh Test VBG pH 7.38 POC VBG pCO2 41.3 D POC VBG pO2 56.9 H D Mixed VBG HCO3 24.3 Carboxyhemoglobin Methemoglobin O2 Delivery Device Oxygen Flow Rate Vent Mode Vent Rate Mechanical Rate Pressure Support Vent Sodium Potassium Chloride Carbon Dioxide Anion Gap BUN Creatinine Creat Clearance w eGFR Random Glucose Lactic Acid Calcium Phosphorus Magnesium Total Bilirubin AST ALT Alkaline Phosphatase Creatine Kinase Troponin I B-Natriuretic Peptide Total Protein Albumin TSH 5.95 H Free T4 0.63 L Urine Color Urine Appearance Urine pH Ur Specific [place] Urine Protein Urine Glucose (UA) Urine Ketones Urine Blood Urine Nitrite Urine Bilirubin Urine Urobilinogen Ur Leukocyte Esterase 07/29/17 07/29/17 07/29/17 17:41 17:42 17:58 WBC RBC Hgb Hct MCV MCH MCHC RDW Plt Count MPV Total Counted Neutrophils % Neutrophils % (Manual) Band Neutrophils % Lymphocytes % Lymphocytes % (Manual) Monocytes % Monocytes % (Manual) Eosinophils % Eosinophils % (Manual) Basophils % Basophils % (Manual) Myelocytes % (Man) Promyelocytes % (Man) Blast Cells % (Manual) Nucleated RBC % Metamyelocytes Differential Comment Hypersegmented Neuts Plasma Cells Smudge Cells Other Cell Type Hypochromia Toxic Granulation Dohle Bodies Polychromasia Poikilocytosis Basophilic Stippling Anisocytosis Microcytosis Macrocytosis Spherocytes Siderocytes Sickle Cells Target Cells Tear Drop Cells Ovalocytes Stomatocytes Helmet Cells [place] Bodies [place] Rings Jass Cells Acanthocytes (Spur) Rouleaux Fragmented RBCs Schistocytes Anticoagulation Therapy No Result Required. Puncture Site Right radial ABG pH 7.41 ABG pCO2 at Pt Temp 39.7 ABG pO2 at Pt Temp 62.6 L D ABG HCO3 24.4 ABG O2 Sat (Measured) 91.6 ABG O2 Content 14.2 L ABG Base Excess 0.3 Santosh Test Positive VBG pH POC VBG pCO2 POC VBG pO2 Mixed VBG HCO3 Carboxyhemoglobin 1.3 Methemoglobin 1.6 H O2 Delivery Device Room air Oxygen Flow Rate 21% Vent Mode No Result Required. Vent Rate No Result Required. Mechanical Rate No Result Required. Pressure Support Vent No Result Required. Sodium 130 L Potassium 4.7 Chloride 96 L Carbon Dioxide 26 Anion Gap 8 BUN 19 H Creatinine 1.2 H Creat Clearance w eGFR 42.30 Random Glucose 127 H Lactic Acid 1.2 Calcium 8.6 Phosphorus Magnesium Total Bilirubin 0.3 AST 22 ALT 19 Alkaline Phosphatase 94 Creatine Kinase 128 Troponin I < 0.02 B-Natriuretic Peptide 1104.26 H Total Protein 8.0 Albumin 4.2 TSH Free T4 Urine Color Urine Appearance Urine pH Ur Specific [place] Urine Protein Urine Glucose (UA) Urine Ketones Urine Blood Urine Nitrite Urine Bilirubin Urine Urobilinogen Ur Leukocyte Esterase 05/25/18 05/25/18 05/25/18 01:01 01:02 06:30 WBC 2.1 L D RBC 3.24 L Hgb 10.4 L D Hct 31.0 L MCV 95.8 MCH 31.9 MCHC 33.3 RDW 13.3 Plt Count 171 MPV 7.4 L Total Counted Neutrophils % Neutrophils % (Manual) Band Neutrophils % Lymphocytes % Lymphocytes % (Manual) Monocytes % Monocytes % (Manual) Eosinophils % Eosinophils % (Manual) Basophils % Basophils % (Manual) Myelocytes % (Man) Promyelocytes % (Man) Blast Cells % (Manual) Nucleated RBC % Metamyelocytes Differential Comment Hypersegmented Neuts Plasma Cells Smudge Cells Other Cell Type Hypochromia Toxic Granulation Dohle Bodies Polychromasia Poikilocytosis Basophilic Stippling Anisocytosis Microcytosis Macrocytosis Spherocytes Siderocytes Sickle Cells Target Cells Tear Drop Cells Ovalocytes Stomatocytes Helmet Cells [place] Bodies [place] Rings [place] Cells Acanthocytes (Spur) Rouleaux Fragmented RBCs Schistocytes Anticoagulation Therapy Puncture Site ABG pH ABG pCO2 at Pt Temp ABG pO2 at Pt Temp ABG HCO3 ABG O2 Sat (Measured) ABG O2 Content ABG Base Excess Santosh Test VBG pH POC VBG pCO2 POC VBG pO2 Mixed VBG HCO3 Carboxyhemoglobin Methemoglobin O2 Delivery Device Oxygen Flow Rate Vent Mode Vent Rate Mechanical Rate Pressure Support Vent Sodium Potassium Chloride Carbon Dioxide Anion Gap BUN Creatinine Creat Clearance w eGFR Random Glucose Lactic Acid Calcium Phosphorus Magnesium Total Bilirubin AST ALT Alkaline Phosphatase Creatine Kinase 89 Troponin I < 0.02 B-Natriuretic Peptide Total Protein Albumin TSH Free T4 Urine Color Ltyellow Urine Appearance Clear Urine pH 5.0 Ur Specific [place] 1.014 Urine Protein Negative Urine Glucose (UA) Negative Urine Ketones Trace H Urine Blood Negative Urine Nitrite Negative Urine Bilirubin Negative Urine Urobilinogen Negative Ur Leukocyte Esterase Negative 07/30/17 07/30/17 07/31/17 06:30 09:00 07:00 WBC 2.2 L 5.4 D RBC 3.18 L 3.38 L Hgb 10.3 L 10.8 Hct 30.5 L 32.4 MCV 95.9 95.6 MCH 32.3 31.8 MCHC 33.7 33.3 RDW 13.4 13.4 Plt Count 154 170 MPV 7.5 7.6 Total Counted Cancelled Neutrophils % 48.8 D 74.4 D Neutrophils % (Manual) Cancelled Band Neutrophils % Cancelled Lymphocytes % 45.2 H D 22.0 D Lymphocytes % (Manual) Cancelled Monocytes % 5.9 3.5 L Monocytes % (Manual) Cancelled Eosinophils % 0.0 0.0 Eosinophils % (Manual) Cancelled Basophils % 0.1 D 0.1 Basophils % (Manual) Cancelled Myelocytes % (Man) Cancelled Promyelocytes % (Man) Cancelled Blast Cells % (Manual) Cancelled Nucleated RBC % 0 0 Metamyelocytes Cancelled Differential Comment Cancelled Hypersegmented Neuts Cancelled Plasma Cells Cancelled Smudge Cells Cancelled Other Cell Type Cancelled Hypochromia Cancelled Toxic Granulation Cancelled Dohle Bodies Cancelled Polychromasia Cancelled Poikilocytosis Cancelled Basophilic Stippling Cancelled Anisocytosis Cancelled Microcytosis Cancelled Macrocytosis Cancelled Spherocytes Cancelled Siderocytes Cancelled Sickle Cells Cancelled Target Cells Cancelled Tear Drop Cells Cancelled Ovalocytes Cancelled Stomatocytes Cancelled Helmet Cells Cancelled [place] Bodies Cancelled [place] Rings Cancelled Jass Cells Cancelled Acanthocytes (Spur) Cancelled Rouleaux Cancelled Fragmented RBCs Cancelled Schistocytes Cancelled Anticoagulation Therapy Puncture Site ABG pH ABG pCO2 at Pt Temp ABG pO2 at Pt Temp ABG HCO3 ABG O2 Sat (Measured) ABG O2 Content ABG Base Excess Santosh Test VBG pH POC VBG pCO2 POC VBG pO2 Mixed VBG HCO3 Carboxyhemoglobin Methemoglobin O2 Delivery Device Oxygen Flow Rate Vent Mode Vent Rate Mechanical Rate Pressure Support Vent Sodium 132 L Potassium 4.7 Chloride 97 L Carbon Dioxide 22 Anion Gap 13 BUN 23 H Creatinine 1.0 Creat Clearance w eGFR Random Glucose 122 H Lactic Acid Calcium 8.2 L Phosphorus 4.7 Magnesium 2.3 Total Bilirubin AST ALT Alkaline Phosphatase Creatine Kinase Troponin I B-Natriuretic Peptide Total Protein Albumin TSH Free T4 Urine Color Urine Appearance Urine pH Ur Specific [place] Urine Protein Urine Glucose (UA) Urine Ketones Urine Blood Urine Nitrite Urine Bilirubin Urine Urobilinogen Ur Leukocyte Esterase 07/31/17 08/01/17 08/01/17 07:00 06:25 06:25 WBC 7.6 D RBC 3.56 L Hgb 11.5 Hct 34.4 MCV 96.8 H MCH 32.3 MCHC 33.3 RDW 13.4 Plt Count 181 MPV 7.4 L Total Counted Neutrophils % 81.9 Neutrophils % (Manual) Band Neutrophils % Lymphocytes % 14.9 D Lymphocytes % (Manual) Monocytes % 3.1 L Monocytes % (Manual) Eosinophils % 0.0 Eosinophils % (Manual) Basophils % 0.1 Basophils % (Manual) Myelocytes % (Man) Promyelocytes % (Man) Blast Cells % (Manual) Nucleated RBC % 0 Metamyelocytes Differential Comment Hypersegmented Neuts Plasma Cells Smudge Cells Other Cell Type Hypochromia Toxic Granulation Dohle Bodies Polychromasia Poikilocytosis Basophilic Stippling Anisocytosis Microcytosis Macrocytosis Spherocytes Siderocytes Sickle Cells Target Cells Tear Drop Cells Ovalocytes Stomatocytes Helmet Cells [place] Bodies [place] Rings Jass Cells Acanthocytes (Spur) Rouleaux Fragmented RBCs Schistocytes Anticoagulation Therapy Puncture Site ABG pH ABG pCO2 at Pt Temp ABG pO2 at Pt Temp ABG HCO3 ABG O2 Sat (Measured) ABG O2 Content ABG Base Excess Santosh Test VBG pH POC VBG pCO2 POC VBG pO2 Mixed VBG HCO3 Carboxyhemoglobin Methemoglobin O2 Delivery Device Oxygen Flow Rate Vent Mode Vent Rate Mechanical Rate Pressure Support Vent Sodium 134 L 135 L Potassium 4.9 4.8 Chloride 100 100 Carbon Dioxide 26 28 Anion Gap 8 7 L BUN 34 H 39 H Creatinine 1.0 1.1 H Creat Clearance w eGFR 52.20 46.77 Random Glucose 143 H 134 H Lactic Acid Calcium 8.6 8.7 Phosphorus 4.2 3.7 Magnesium 2.7 H 2.6 H Total Bilirubin 0.2 D 0.2 AST 20 18 ALT 17 17 Alkaline Phosphatase 73 73 Creatine Kinase Troponin I B-Natriuretic Peptide Total Protein 7.0 7.3 Albumin 3.5 3.9 TSH Free T4 Urine Color Urine Appearance Urine pH Ur Specific [place] Urine Protein Urine Glucose (UA) Urine Ketones Urine Blood Urine Nitrite Urine Bilirubin Urine Urobilinogen Ur Leukocyte Esterase CT chest Compared to prior chest x-ray dated 07/29/2017 There is moderate elevation of the right hemidiaphragm. Included lower neck appears unremarkable. Dense calcified plaques in the aortic arch wall. The heart is within normal limits in size. Calcification of the coronary arteries are present. There are calcified lymph nodes in the right paratracheal and infracarinal region as well as in the right hilum with the largest right paratracheal lymph node measuring 1.4 cm. Other subcentimeter and slightly enlarged mediastinal lymph nodes are present with the largest aortopulmonary window lymph node measuring 1.4 x 1.1 cm. Evaluation of the lung demonstrates mild bilateral interstitial thickening without evidence of focal infiltrates, pneumothorax or pleural effusion. 4 mm calcified nodule in the right middle lobe compatible with a granuloma. Included upper abdomen demonstrates a slightly over distended gallbladder measuring 7.3 cm in its sagittal length without gross intraluminal stones or wall thickening. There is a questionable small hiatus hernia area tiny calcific density in the right hepatic lobe likely representing a granuloma. Likely partially exophytic left renal cyst measuring 9 mm Visualized osseous structures appear intact with moderate degenerative disc disease at L1-L2 level. IMPRESSION: No acute lung disease is present. Calcified lymph nodes in the calcific density in the right hepatic lobe consistent with old granulomatous disease. Slightly enlarged mediastinal lymph nodes including the aortopulmonary window measuring up to 1.4 x 1.1 cm. Normal size heart. Slightly over distended gallbladder without gross intraluminal stones. Likely partially exophytic 9 mm left renal cyst Lower extremity Duplex - neg for DVT 2D echo - EF 55-60%, RV normal size and function, Mild mitral annular calcificification/Mitral regurgitation/Tricuspid regurgitation, RV systolic pressure 30-40 mm Hg, Moderate Aortic sclerosis, Mild aortic regurgitation, no pericardial effusion HOSPITAL COURSE: Date of Admission:07/30/17 Date of Discharge: 08/02/17 Minutes to complete discharge: 35 Discharge Summary Reason For Visit: ASTHMA-CHRONIC OBSTRUCTIVE PULMONARY DISEASE Current Active Problems Asthma-COPD overlap syndrome (Acute) Hypothyroidism (Acute) Hospital Course: she was placed on IV steroids, pulmonary was consulted. She had CT chest showing mediastinal lymphadenopathy otherwise nonconcerning. She also had RBBB on admission, Had 2D echo with EF 55-60%, elevated RV systolic pressures. She had duplex Lower extremities, that was neg for DVT. She had extensive wheezing on admission that improved with steroids and nebulizer and was noted with no home oxygen requirements. She is being discharge on prednisone taper. She also TSH 5.95 and Free T4 0.63 and advised repeat thyroid studies in 2 weeks. She is markedly improved with stable vitals, off oxygen and ambulating well. Condition: Stable - Instructions Diet, Activity, Other Instructions: You are discharged on prednisone taper as follows: 40 mg daily for 2 days on 08/03/17 an 08/04/17 30 mg daily for 2 days on 08/05/17 and 08/06/17 20 mg daily for 2 days on 08/07/17 and 08/08/17 10 mg daily for 2 days on 08/09/17 and 08/10/17, then off. Advise thyroid function test check in 2 weeks with your doctor and address your medication accordingly. Continue all your other home medications as before. Continue using your walker as before. Call 911 or come to ED if worsening breathing, fevers, chills, cough or new concerns. You are advised to follow up with lung doctor Dr. Layne in 2-3 weeks, information provided. Your CT chest showed some enlargement of lymph nodes which will need follow up. Please call his office on discharge to schedule follow up. Referrals: Jesse Layne MD [Staff Physician] - 3 Weeks [facility]position[facility] - Home Medications Comprehensive Discharge Medication List: Ambulatory Orders Acetaminophen [Tylenol .Extra-Strength -] 650 mg PO TID PRN 05/24/15 Aspirin [ASA -] 81 mg PO DAILY 05/24/15 Atorvastatin Calcium 10 mg PO HS 05/24/15 Cholecalciferol (Vitamin D3) [Vitamin D3] 2,000 unit PO DAILY 05/24/15 Docusate Sodium 100 mg PO DAILY 05/24/15 Escitalopram Oxalate [Lexapro -] 10 mg PO DAILY 05/24/15 Ferrous Sulfate 325 mg PO DAILY 05/24/15 Mirtazapine 7.5 mg PO HS 05/24/15 Omeprazole [Prilosec] 40 mg PO DAILY 05/24/15 Amlodipine Besylate 5 mg PO DAILY 04/22/17 Hypromellose 0.5% Opth Soln [Artificial Tears] 1 - 2 drop TID 04/22/17 Meclizine HCl 25 mg PO BID PRN 04/22/17 Sennosides [Senna] 8.6 mg PO HS 04/22/17 Thyroid [[place] Thyroid] 60 mg PO DAILY 04/22/17 Sodium Chloride Tablet - 1 gm PO DAILY #30 tablet 04/28/17 Budesonide/Formeterol Fumarate [SYMBICORT 80/4.5mcg -] 2 inh PO BID 07/29/17 Olanzapine [Zyprexa] 2.5 mg PO HS 07/29/17 Travoprost [Travatan Z] 5 ml OU HS 07/29/17 Nystatin Cream [Mycostatin Cream -] 1 applic TP BID 5 Days applic 08/02/17 Prednisone 40 mg PO ASDIR #20 tablet 08/02/17 This patient is new to me today: No Emergency Visit: No Critical Care patient: No - Discharge Referral Referred to [facility] No
[2017-08-02] MEDS: SODIUM CHLORIDE 1 GM TABLET PO SCH (11:07)
--- NOTE | 2017-08-02 11:41 | PN ---
Progress Note (short form) - Note Progress Note: PULMONARY Denies shortness of breath. Less cough and wheezing. Last Vital Signs Temp Pulse Resp BP Pulse Ox 97.9 F 82 18 132/74 94 L 08/02/17 08:24 08/02/17 08:24 08/02/17 08:24 08/02/17 08:24 08/02/17 08:18 Gen: NAD at rest Heart: RRR Lung: decreased breath sounds at the bases Abd: soft, nontender Ext: no edema CBC, BMP 08/01/17 06:25 08/01/17 06:25 Active Medications Acetaminophen (Tylenol -) 650 mg PO Q8H PRN PRN Reason: PAIN LEVEL 1 - 3 Last Admin: 08/02/17 06:30 Dose: 650 mg Albuterol Sulfate (Ventolin 0.083% Nebulizer Soln -) 1 amp NEB Q4H PRN PRN Reason: ASTHMA Albuterol/Ipratropium (Duoneb -) 1 amp NEB RQID [facility] Last Admin: 08/02/17 11:22 Dose: 1 amp Amlodipine Besylate (Norvasc -) 5 mg PO DAILY [facility] Last Admin: 08/02/17 09:19 Dose: 5 mg Artificial Tears (Artificial Tears) 1 drop OU TID [facility] Last Admin: 08/02/17 06:31 Dose: 1 drop Aspirin (Asa -) 81 mg PO DAILY [facility] Last Admin: 08/02/17 09:19 Dose: 81 mg Atorvastatin Calcium (Lipitor -) 10 mg PO HS [facility] Last Admin: 08/01/17 21:39 Dose: 10 mg Budesonide/Formoterol Fumarate (Symbicort 80/4.5mcg -) 2 puff IH BID [facility] Last Admin: 08/02/17 09:18 Dose: 2 puff Cholecalciferol (Vitamin D3 -) 2,000 unit PO DAILY [facility] Last Admin: 08/02/17 09:19 Dose: 2,000 unit Clotrimazole (Lotrisone Cream (Small Tube)) 1 applic TP BID [facility] Last Admin: 08/02/17 09:20 Dose: 1 applic Docusate Sodium (Colace -) 100 mg PO Q8H PRN PRN Reason: CONSTIPATION Escitalopram Oxalate (Lexapro -) 10 mg PO DAILY [facility] Last Admin: 05/28/18 09:19 Dose: 10 mg Ferrous Sulfate (Feosol -) 325 mg PO DAILY [facility] Last Admin: 08/02/17 09:19 Dose: 325 mg Heparin Sodium (Porcine) (Heparin -) 5,000 unit SQ Q8H-IV [facility] Last Admin: 08/02/17 09:18 Dose: 5,000 unit Meclizine HCl (Antivert -) 25 mg PO BID [facility] Last Admin: 08/02/17 09:19 Dose: 25 mg Mirtazapine (Remeron -) 7.5 mg PO HS [facility] Last Admin: 08/01/17 21:38 Dose: 7.5 mg Nystatin (Mycostatin Cream -) 1 applic TP BID [facility] Last Admin: 08/02/17 09:20 Dose: 1 applic Olanzapine (Zyprexa -) 2.5 mg PO HS [facility] Last Admin: 08/01/17 21:38 Dose: 2.5 mg Pantoprazole Sodium (Protonix -) 40 mg PO DAILY [facility] Last Admin: 08/02/17 09:19 Dose: 40 mg Prednisone (Deltasone -) 50 mg PO DAILY [facility] Last Admin: 08/02/17 09:18 Dose: 50 mg Senna (Senna -) 1 tab PO HS [facility] Last Admin: 08/01/17 21:45 Dose: 1 tab Sodium Chloride (Sodium Chloride Tablet -) 1 gm PO DAILY [facility] Last Admin: 08/02/17 11:07 Dose: 1 gm Thyroid ([place] Thyroid -) 60 mg PO 0700 [facility] Last Admin: 08/02/17 06:31 Dose: 60 mg A/P Acute COPD Exacerbation Pulmonary HTN HTN GERD Hyponatremia - prednisone taper - inhaled bronchodilators - O2 to keep SpO2 >90% - DVT prophylaxis - d/c planning
== END 2017-08-02 13:15 | DRG 191 ==
LOC: JER 16:51 → J6S 22:39 → OBSVTOIN 07-30 10:21 → J6S 07-31 01:03
PROVIDERS: ADMIT Internal Medicine; ATTEND Hospitalist
PROC: 3E0F76Z Introduction of Nutritional Substance into Respiratory Tract, Via Natural or Artificial Opening (ICD-10-PCS; principal; 2017-07-29)
DX: J44.1 Chronic obstructive pulmonary disease with (acute) exacerbation (principal); J45.901 Unspecified asthma with (acute) exacerbation; M35.1 Other overlap syndromes; N39.0 Urinary tract infection, site not specified; E22.2 Syndrome of inappropriate secretion of antidiuretic hormone; K21.9 Gastro-esophageal reflux disease without esophagitis; J44.9 Chronic obstructive pulmonary disease, unspecified; E03.9 Hypothyroidism, unspecified; I10 Essential (primary) hypertension; E78.5 Hyperlipidemia, unspecified; F41.9 Anxiety disorder, unspecified; I25.10 Atherosclerotic heart disease of native coronary artery without angina pectoris; I45.10 Unspecified right bundle-branch block; D70.9 Neutropenia, unspecified
CPT/HCPCS: 36415; 36600; 71045-TC-FY; 71250-TC; 80048; 80053; 81003; 82375; 82550; 82803; 83050; 83605; 83735; 83880; 84100; 84439; 84443; 84484; 85025; 85027; 87040; 87086; 93005; 93010; 93306-TC; 93970-TC; 94640; 94761; 97116-GP; 97161-GP; 99285-25; G0378; J1644; J7620